=== PATIENT | female | born 1950 | race Caucasian/White ===

== ENCOUNTER 2016-06-20 17:27 | Emergency (ER) ==
[2016-06-20 17:32] VITALS: BP 134/91; TEMP 98.4; BMI 28.1
[2016-06-20 17:51] LABS: BASOPHILS % (AUTO) 0.3 % (0.0-3.0); EOSINOPHILS # (AUTO) 0.1 K/ul (0.0-0.7); EOSINOPHILS % (AUTO) 0.8 % (0.0-7.0); HEMATOCRIT 38.5 % (37.0-47.0); HEMOGLOBIN 13.6 g/dl (12.0-16.0); IMMATURE GRANULOCYTE % (AUTO) 0.8 % (0.0-5.0); LYMPHOCYTES # (AUTO) 1.3 K/uL (0.60-3.4); LYMPHOCYTES % (AUTO) 12.1 (10.0-50.0); MEAN CORPUSCULAR HGB CONC 35.3 (31.8-35.4); MEAN CORPUSCULAR VOLUME 93.4 fl (81.0-99.0); MONOCYTES # (AUTO) 0.6 K/uL (0.4-2.0); MONOCYTES % (AUTO) 5.6 (0-10); NEUTROPHILS # (AUTO) 8.3 K/ul (2.0-6.9); NEUTROPHILS % (AUTO) 80.4; PLATELET COUNT 234 10^3/uL (140-440); RED BLOOD COUNT 4.12 10^6/ul (4.20-5.40); WHITE BLOOD COUNT 10.34 K/ul (4.6-10.2)
--- NOTE | 2016-06-20 17:59 | ED.PDOC ---
General Stated Complaint: OVERDOSE LAMOTRIGINE Time Seen by Physician: 17:30 (TOOK ABOUT ABOUT 3 HOURS P.T.A ) Mode of Arrival: Ambulance Information Source: Patient, EMT Exam Limitations: No limitations (ABOUT 5:45 PT AOX3 ) Nursing and Triage Documentation Reviewed and Agree: Yes <FLEIPEKAYLEE - Last Filed: 06/20/16 17:57> <ALEJANDRA MANCILLA - Last Filed: 06/21/16 00:13> ED Provider: Dr. ALEJANDRA DHALIWALHILARIO Chief Complaint: Suicide Attempt Overdose Primary Care Provider: SHANE BAGLEY Psychological Complaint Exam - Overdose/Toxic Exposure Complaint/Exam Patient Complains Of: Overdose Exposure Occurred: 3 HOURS AGO Ingestion: Medication Character: Reports: Oral Aggravating: Reports: None Treatment Prior To Arrival: None Associated Signs And Symptoms: Reports: Intentional ingestion Related History: Reports: Similar episode (LESS THAN ONE YEAR, PT IS NOT STATING WHY SHE HAS TAKEN MEDS) Completed Suicide Risk Factors: Age > 60, , Past suicide attempt Gag Reflex Present: Yes Inability To Swallow Present: No Drooling Present: No Glascow Coma Scale (see protocol): 15 Miosis Present: No Mydriasis Present: No Nystagmus Present: No Speech: Present: Normal findings Aphasia: Present: None Gait: Present: Unable Patient Uncooperative For Exam: Yes Mood: Present: Depressed Appearance: Present: Clean Thought Process: Present: Logical Insight: Present: Limited Memory: Intact Judgement: Impaired Danger To Others: No Patient Medically Stable For: Psych evaluation Differential Diagnoses: Depression, Intentional Drug OD Quality Indicator For Non-Traumatic Chest Pain/Syncope: EKG Performed <MARIANMIKEKAYLEE - Last Filed: 06/20/16 17:57> Review of Systems - Review Of Systems Constitutional: Reports: Malaise Eyes: Reports: No symptoms Ears, Nose, Mouth, Throat: Reports: No symptoms Respiratory: Reports: No symptoms Cardiac: Reports: No symptoms GI: Reports: No symptoms : Reports: No symptoms Musculoskeletal: Reports: No symptoms Skin: Reports: No symptoms Neurological: Reports: No symptoms Endocrine: Reports: No symptoms Hematologic/Lymphatic: Reports: No symptoms All Other Systems: Reviewed and Negative <FELIPEKAYLEE - Last Filed: 06/20/16 17:57> Past Medical History - Past Medical History Endocrine: Reports: Hypothyroid (synthroid) Cardiovascular: Reports: Hypertension (diovan) Respiratory: Reports: None Hematological: Reports: None Gastrointestinal: Reports: None Genitourinary: Reports: None Neuro/Psych: Reports: Anxiety, Depression Musculoskeletal: Reports: None Cancer: Reports: None Last Menstrual Period: n/a Other Pertinent Past Medical History: htn thyroid depr anx - Surgical History General Surgical History: Reports: Unknown - Family History Family History: Reports: Unknown - Social History Smoking Status: Current every day smoker, Heavy tobacco smoker Hx Substance Use: No (PATIENTADMITSMARIJUANAUSE"HELPS ME SLEEP" AND XANAX(NOTE IS ON CLONAZEPAM)) Alcohol Screening: None <KAYLEE WANG - Last Filed: 06/20/16 17:57> Physical Exam - Physical Exam Appearance: Ill-appearing Ill-appearing: Mild Pain Distress: Mild Eyes: MK, EOMI, Conjunctiva clear ENT: Ears normal, Nose normal, Oropharynx normal Respiratory: Airway patent, Breath sounds clear, Breath sounds equal, Respirations nonlabored Cardiovascular: RRR, Pulses normal, No rub, No murmur GI/: Soft, Nontender, No masses, Bowel sounds normal, No Organomegaly Musculoskeletal: Normal strength, ROM intact, No edema, No calf tenderness Skin: Warm, Dry, Normal color Neurological: Sensation intact, Motor intact, Reflexes intact, Cranial nerves intact, Alert, Oriented Psychiatric: Affect appropriate, Mood appropriate <KAYLEE WANG Last Filed: 06/20/16 17:57> Interpretation - Apron Trimmer Rate: Normal Rhythm: Sinus Ectopy: None - EKG Interpretation Rate: Normal Rhythm: Sinus Ectopy: None [place]: [place] ST Segment: Normal <KAYLEE WANG Last Filed: 06/20/16 17:57> Re-Evaluation - Re-Evaluation Time of Re-Evaluation: 23:23 Status: Improved (awake and alert--remorseful--says she is not suicidal now--) Vital Signs Stable: Yes Pain Level: 0 Appearance: NAD Lungs: Clear Skin: Warm and Dry Neuro: Alert and Oriented X3 CV: RRR <ALEJANDRA MANCILLA - Last Filed: 06/21/16 00:13> Critical Care Note - Critical Care Note Total Time (mins): 0 <KAYLEE WANG Last Filed: 06/20/16 17:57> Course - Course Hematology/Chemistry: 06/20/16 17:45 <KAYLEE WANG - Last Filed: 06/20/16 17:57> - Course Hematology/Chemistry: 06/20/16 17:45 06/20/16 17:45 <ALEJANDRA MANCILLA - Last Filed: 06/21/16 00:13> - Course Orders, Labs, Meds: Lab Review 06/20/16 06/20/16 17:45 18:10 WBC 10.34 H RBC 4.12 L Hgb 13.6 Hct 38.5 MCV 93.4 MCH 33.0 H MCHC 35.3 RDW Coeff of Dorinda 12.2 Plt Count 234 Immature Gran % (Auto) 0.8 Neut % (Auto) 80.4 Lymph % (Auto) 12.1 [place] % (Auto) 5.6 Eos % (Auto) 0.8 Baso % (Auto) 0.3 Immature Gran # (Auto) 0.1 Neut # 8.3 H Lymph # 1.3 [place] # 0.6 Eos # 0.1 Baso # 0.0 Sodium 139 Potassium 3.4 L Chloride 104 Carbon Dioxide 27 Anion Gap 11.4 BUN 16 Creatinine 0.98 Estimated GFR (MDRD) 57.00 BUN/Creatinine Ratio 16.32 Glucose 114 Calcium 9.3 Magnesium 1.9 Total Bilirubin 0.30 AST 17 ALT 18 Alkaline Phosphatase 85 Total Creatine Kinase 81 Total Protein 7.0 Albumin 3.6 Globulin 3.4 Albumin/Globulin Ratio 1.06 TSH 0.705 Urine Color Yellow Urine Clarity Clear Urine pH 5.5 Ur Specific [place] 1.020 Urine Protein Negative Urine Glucose (UA) Negative Urine Ketones Negative Urine Blood 1+ Urine Nitrite Negative Urine Bilirubin Negative Urine Urobilinogen 0.2 Ur Leukocyte Esterase Negative Urine Microscopic RBC 2-5 Ur Squamous Epith Cells Not present Salicylate Level mg/dL < 5.0 Urine Opiates Screen Negative Ur Oxycodone Screen Negative Urine Methadone Screen Negative Ur Propoxyphene Screen Negative Acetaminophen < 3 L Ur Barbiturates Screen Negative U Tricyclic Antidepress Negative Ur Phencyclidine Scrn Negative Ur Amphetamine Screen Negative U Methamphetamines Scrn Positive U Benzodiazepines Scrn Positive Urine Cocaine Screen Negative U Cannabinoids Screen Negative Plasma/Serum Alcohol < 10.0 Orders Category Date Time Status EKG-(ED ONLY) Stat CARDIO 06/20/16 17:39 Completed EKG-(ED ONLY) Timed CARDIO 06/20/16 21:00 Completed ED PROCESS PUMPER APPLIED ONCE EMERGENCY 06/20/16 17:39 Active Mental Health Consult [ED MENTAL HEALTH CONSULT] .ONCE EMERGENCY 06/20/16 19: 50 Active Poison Control [ED POISON CONTROL CONTACTED] .ONCE EMERGENCY 06/20/16 18:32 Active ACETAMINOPHEN Stat LAB 06/20/16 17:45 Completed BLOOD ALCOHOL Stat LAB 06/20/16 17:45 Completed CALCIUM Stat LAB 06/20/16 17:45 Completed CBC W/ AUTO DIFF Stat LAB 06/20/16 17:45 Completed COMPREHENSIVE METABOLIC PANEL Stat LAB 06/20/16 17:45 Completed CPK [CREATINE KINASE] Stat LAB 06/20/16 17:45 Completed DRUG SCREEN, URINE, RAPID Stat LAB 06/20/16 18:10 Completed MAGNESIUM Stat LAB 06/20/16 17:45 Completed SALICYLATE Stat LAB 06/20/16 17:45 Completed TSH [THYROID STIMULATING HORMONE] Stat LAB 06/20/16 17:45 Completed URINALYSIS C & S IF INDICATED Stat LAB 06/20/16 18:10 Completed Potassium Chloride [K-Dur] MEDS 06/20/16 18:43 Discontinued 40 meq PO ONCE STA Medications Discontinued Medications Generic Name Dose Route Start Last Admin Trade Name Freq PRN Reason Stop Dose Admin Potassium Chloride 40 meq 06/20/16 18:43 06/20/16 19:10 K-Dur PO 06/20/16 18:44 40 meq ONCE STA Administration mental health counselor here to see the patient --he does not feel she is suicidal at this time--i agree--spoke to her sister and she will be staying with her (ALEJANDRA MANCILLA) Vital Signs: Temp Pulse Resp BP Pulse Ox 06/20/16 17:27 98.4 F 73 16 134/91 H 93 L cleared by poison control but discharge as well as mental health) (ALEJANDRA MANCILLA) Departure - Departure Disposition Discussed With: Patient <FELIPEKAYLEE - Last Filed: 06/20/16 17:57> - Departure Time of Disposition: 23:25 Pt referred to PMD for follow-up: Yes Disposition Discussed With: Patient, Family <ALEJANDRA MANCILLA - Last Filed: 06/21/16 00:13> - Departure Disposition: HOME SELF-CARE Discharge Problem: Depression Discharge Problem: (Ruled Out): Suicide by self-administered drug Instructions: Depression (ED) Condition: Good Additional Instructions: f/u with mental health per their discussion Allergies/Adverse Reactions: Allergies morphine Adverse Reaction (Verified 06/20/16 17:37) Home Medications: Ambulatory Orders Levothyroxine Sodium [Synthroid] 100 mcg PO QDAC 04/13/13 Clonazepam 1 mg PO TID 09/13/15 Doxepin HCl [Sinequan] 25 mg PO BEDTIME 09/13/15 Levothyroxine Sodium [Synthroid] 50 mcg PO QDAC #30 tablet 09/13/15 Lorazepam 1 mg PO TID 09/13/15 Losartan/Hydrochlorothiazide [Losartan-Hctz 100-25 mg Tab] 1 each PO DAILY 09/12 Sertraline HCl 100 mg PO DAILY 09/13/15
[2016-06-20 18:13] LABS: ACETAMINOPHEN < 3 ug/ml (10-30); ALANINE AMINOTRANSFERASE 18 U/L (12-78); ALBUMIN 3.6 g/dL (3.4-5.0); ALBUMIN/GLOBULIN RATIO 1.06; ALKALINE PHOSPHATASE 85 U/L (53-141); ANION GAP 11.4; ASPARTATE AMINO TRANSFERASE 17 U/L (15-37); BLOOD UREA NITROGEN 16 mg/dL (7-18); BUN/CREATININE RATIO 16.32; CALCIUM 9.3 mg/dL (8.2-10.2); CARBON DIOXIDE 27 mmol/L (23-31); CHLORIDE 104 mmol/L (98-107); CREATININE 0.98 mg/dL (0.60-1.30); GLUCOSE 114 mg/dL (82-115); POTASSIUM 3.4 mmol/L (3.5-5.10); SALICYLATE < 5.0 mg/dL (2.8-20.0); SODIUM 139 mmol/L (136-145)
[2016-06-20 18:16] LABS: BILIRUBIN,URINE Negative (NEGATIVE); KETONES,URINE Negative (NEGATIVE); LEUKOCYTE ESTERASE ,URINE Negative (NEGATIVE); NITRITE,URINE Negative (NEGATIVE); PH,URINE 5.5 (5-9); PROTEIN,URINE Negative (NEGATIVE); URINE, BLOOD 1+ (NEGATIVE)
[2016-06-20 18:19] LABS: ADD URINE MICROSCOPIC YES
[2016-06-20 18:21] LABS: CALCIUM 9.3 mg/dL (8.2-10.2); MAGNESIUM 1.9 mg/dL (1.7-2.2)
[2016-06-20 18:24] LABS: COCAIN SCREEN,URINE NEGATIVE (NEGATIVE)
[2016-06-20] MEDS ORDERED: K-DUR PO STA (18:43)
== END 2016-06-21 00:10 | disposition home or self-care (01) ==
LOC: ED 17:27
DX: T42.6X1A Poisoning by other antiepileptic and sedative-hypnotic drugs, accidental (unintentional), initial encounter (principal); F32.9 Major depressive disorder, single episode, unspecified; I10 Essential (primary) hypertension; E03.9 Hypothyroidism, unspecified; F17.210 Nicotine dependence, cigarettes, uncomplicated; Z79.899 Other long term (current) drug therapy
CPT/HCPCS: 36415; 80053; 80306; 80307; 81001; 82310; 82550; 83735; 84443; 85025; 93005; 93010; 99283

== ENCOUNTER 2016-08-16 23:16 | Inpatient (IN) | payer OTHER ==
[2016-08-16] MEDS ORDERED: SODIUM CHLORIDE 1,000 ML IV STA (23:19)
[2016-08-16 23:33] LABS: BASOPHILS % (AUTO) 0.5 % (0.0-3.0); EOSINOPHILS # (AUTO) 0.2 K/ul (0.0-0.7); EOSINOPHILS % (AUTO) 2.5 % (0.0-7.0); HEMATOCRIT 39.8 % (37.0-47.0); HEMOGLOBIN 13.8 g/dl (12.0-16.0); IMMATURE GRANULOCYTE % (AUTO) 0.4 % (0.0-5.0); LYMPHOCYTES # (AUTO) 3.4 K/uL (0.60-3.4); LYMPHOCYTES % (AUTO) 42.9 (10.0-50.0); MEAN CORPUSCULAR HEMOGLOBIN 33.3 pg (27.0-31.0); MEAN CORPUSCULAR HGB CONC 34.7 (31.8-35.4); MEAN CORPUSCULAR VOLUME 95.9 fl (81.0-99.0); MONOCYTES # (AUTO) 0.6 K/uL (0.4-2.0); MONOCYTES % (AUTO) 7.6 (0-10); NEUTROPHILS # (AUTO) 3.6 K/ul (2.0-6.9); NEUTROPHILS % (AUTO) 46.1; PLATELET COUNT 242 10^3/uL (140-440); RED BLOOD COUNT 4.15 10^6/ul (4.20-5.40); WHITE BLOOD COUNT 7.85 K/ul (4.6-10.2)
[2016-08-16 23:52] LABS: ALBUMIN 3.7 g/dL (3.4-5.0); ALBUMIN/GLOBULIN RATIO 1.19; ANION GAP 12.6; BILIRUBIN,TOTAL 0.28 mg/dL (0.00-1.20); BUN/CREATININE RATIO 17.17; CALCIUM 9.8 mg/dL (8.2-10.2); CREATININE 0.99 mg/dL (0.60-1.30); POTASSIUM 3.6 mmol/L (3.5-5.10); TOTAL PROTEIN 6.8 g/dL (5.8-8.1)
[2016-08-16 23:58] LABS: ABG BASE EXCESS 2 (-2.0-2.0); ABG PCO2 45.7 mmHg (35-45); ABG PH 7.381 (7.35-7.45); ABG TCO2 28 (22.0-28.0)
[2016-08-17 00:12] LABS: ACETAMINOPHEN < 3 ug/ml (10-30); SALICYLATE < 5.0 mg/dL (2.8-20.0)
[2016-08-17 00:14] LABS: BILIRUBIN,URINE Negative (NEGATIVE); KETONES,URINE Negative (NEGATIVE); LEUKOCYTE ESTERASE ,URINE Negative (NEGATIVE); NITRITE,URINE Negative (NEGATIVE); PH,URINE 5.5 (5-9); PROTEIN,URINE Negative (NEGATIVE); URINE, BLOOD 1+ (NEGATIVE)
[2016-08-17 00:17] LABS: ADD URINE MICROSCOPIC YES
[2016-08-17 00:18] LABS: BACTERIA,URINE TRACE (NOT PRESENT)
[2016-08-17 00:58] LABS: COCAIN SCREEN,URINE NEGATIVE (NEGATIVE)
--- NOTE | 2016-08-17 00:59 | ED.PDOC ---
General ED Provider: Dr. ALEJANDRA DHALIWAL-ER Chief Complaint: Overdose Stated Complaint: took overdose earlier this am--unknown about number of meds Time Seen by Physician: 23:20 Mode of Arrival: Ambulance Information Source: Patient, EMT Exam Limitations: No limitations Primary Care Provider: SHANE BAGLEY Nursing and Triage Documentation Reviewed and Agree: Yes Psychological Complaint Exam - Overdose/Toxic Exposure Complaint/Exam Patient Complains Of: Overdose Ingestion Occurred: earlier this evening Witnessed: No Ingestion: Medication Character: Reports: Oral Aggravating: Reports: None Associated Signs And Symptoms: Reports: Intentional ingestion. Denies: AMS, Agitation, Seizure, Diaphoresis, Chest pain, Palpitations, Cyanosis, Short of air, Cough, Vomiting, Drooling, Unintentional overdose, Pediatric ingestion Related History: Reports: Similar episode Completed Suicide Risk Factors: Age > 60, Gag Reflex Present: Yes Inability To Swallow Present: No Drooling Present: No Glascow Coma Scale (see protocol): 15 Miosis Present: No Mydriasis Present: No Nystagmus Present: No Speech: Present: Normal findings Aphasia: Present: None Gait: Present: Normal Patient Uncooperative For Exam: No Mood: Present: Depressed, Anxious Appearance: Present: Clean Insight: Present: Poor Memory: Intact Judgement: Impaired Danger To Others: No Patient Medically Stable For: Psych evaluation, Referral, Transfer Differential Diagnoses: Anxiety, Intentional Drug OD Quality Indicator For Non-Traumatic Chest Pain/Syncope: EKG Performed Review of Systems - Review Of Systems Constitutional: Reports: No symptoms Eyes: Reports: No symptoms Ears, Nose, Mouth, Throat: Reports: No symptoms Respiratory: Reports: No symptoms Cardiac: Reports: No symptoms GI: Reports: No symptoms : Reports: No symptoms Musculoskeletal: Reports: No symptoms Skin: Reports: No symptoms Neurological: Reports: No symptoms Endocrine: Reports: No symptoms Hematologic/Lymphatic: Reports: No symptoms All Other Systems: Reviewed and Negative Past Medical History - Past Medical History Previously Healthy: Yes Endocrine: Reports: Hypothyroid (synthroid) Cardiovascular: Reports: Hypertension (diovan) Respiratory: Reports: None Hematological: Reports: None Gastrointestinal: Reports: None Genitourinary: Reports: None Neuro/Psych: Reports: Anxiety, Depression Musculoskeletal: Reports: None Cancer: Reports: None Last Menstrual Period: na Other Pertinent Past Medical History: htn thyroid depr anx - Surgical History General Surgical History: Reports: Unknown - Family History Family History: Reports: Unknown - Social History Smoking Status: Current every day smoker Hx Substance Use: Yes (marijuana) Alcohol Screening: None Lives: With family - Immunizations Tetanus Shot up to Date: No (unsure) Physical Exam - Physical Exam Appearance: Well-appearing, No pain distress, Well-nourished Eyes: MK, EOMI, Conjunctiva clear ENT: Ears normal, Nose normal, Oropharynx normal Neck: Supple Respiratory: Airway patent, Breath sounds clear, Breath sounds equal, Respirations nonlabored Cardiovascular: RRR GI/: Soft, Nontender, No masses, Bowel sounds normal, No Organomegaly Musculoskeletal: Normal strength, ROM intact, No edema, No calf tenderness Skin: Warm, Dry, Normal color Neurological: Sensation intact, Motor intact, Reflexes intact, Cranial nerves intact, Alert, Oriented Psychiatric: Affect appropriate, Mood appropriate Re-Evaluation - Re-Evaluation Time of Re-Evaluation: 01:05 Status: Improved Vital Signs Stable: Yes Pain Level: 0 Appearance: NAD Lungs: Clear Skin: Warm and Dry Neuro: Alert and Oriented X3 CV: RRR Physician Notification - Case Discussed Physician Notified: dr stephens Time of Notification: 01:05 Critical Care Note - Critical Care Note Total Time (mins): 0 Course - Course Hematology/Chemistry: 08/16/16 23:30 08/16/16 23:30 Orders, Labs, Meds: Lab Review 08/16/16 08/16/16 08/16/16 23:18 23:30 23:55 WBC 7.85 RBC 4.15 L Hgb 13.8 Hct 39.8 MCV 95.9 MCH 33.3 H MCHC 34.7 RDW Coeff of Dorinda 13.8 Plt Count 242 Immature Gran % (Auto) 0.4 Neut % (Auto) 46.1 Lymph % (Auto) 42.9 [place] % (Auto) 7.6 Eos % (Auto) 2.5 Baso % (Auto) 0.5 Immature Gran # (Auto) 0.0 Neut # 3.6 Lymph # 3.4 [place] # 0.6 Eos # 0.2 Baso # 0.0 Puncture Site Rb O2 Saturation 93.0 L ABG pH 7.381 ABG pCO2 45.7 H ABG pO2 67.0 L ABG HCO3 27.0 H ABG Total CO2 28 ABG Base Excess 2 Orion Test + FiO2 % 21.0 Sodium 141 Potassium 3.6 Chloride 105 Carbon Dioxide 27 Anion Gap 12.6 BUN 17 Creatinine 0.99 Estimated GFR (MDRD) 56.00 BUN/Creatinine Ratio 17.17 Glucose 95 Calcium 9.8 Total Bilirubin 0.28 AST 14 L ALT 14 Alkaline Phosphatase 79 Total Protein 6.8 Albumin 3.7 Globulin 3.1 Albumin/Globulin Ratio 1.19 TSH 2.006 Urine Color Yellow Urine Clarity Clear Urine pH 5.5 Ur Specific [place] 1.010 Urine Protein Negative Urine Glucose (UA) Negative Urine Ketones Negative Urine Blood 1+ Urine Nitrite Negative Urine Bilirubin Negative Urine Urobilinogen 0.2 Ur Leukocyte Esterase Negative Urine Microscopic RBC 0-2 Ur Squamous Epith Cells 2-5 Urine Bacteria Trace Salicylate Level mg/dL < 5.0 Urine Opiates Screen Ur Oxycodone Screen Urine Methadone Screen Ur Propoxyphene Screen Acetaminophen < 3 L Ur Barbiturates Screen U Tricyclic Antidepress Ur Phencyclidine Scrn Ur Amphetamine Screen U Methamphetamines Scrn U Benzodiazepines Scrn Urine Cocaine Screen U Cannabinoids Screen Plasma/Serum Alcohol < 10.0 08/17/16 00:00 WBC RBC Hgb Hct MCV MCH MCHC RDW Coeff of Dorinda Plt Count Immature Gran % (Auto) Neut % (Auto) Lymph % (Auto) [place] % (Auto) Eos % (Auto) Baso % (Auto) Immature Gran # (Auto) Neut # Lymph # [place] # Eos # Baso # Puncture Site O2 Saturation ABG pH ABG pCO2 ABG pO2 ABG HCO3 ABG Total CO2 ABG Base Excess Orion Test FiO2 % Sodium Potassium Chloride Carbon Dioxide Anion Gap BUN Creatinine Estimated GFR (MDRD) BUN/Creatinine Ratio Glucose Calcium Total Bilirubin AST ALT Alkaline Phosphatase Total Protein Albumin Globulin Albumin/Globulin Ratio TSH Urine Color Urine Clarity Urine pH Ur Specific [place] Urine Protein Urine Glucose (UA) Urine Ketones Urine Blood Urine Nitrite Urine Bilirubin Urine Urobilinogen Ur Leukocyte Esterase Urine Microscopic RBC Ur Squamous Epith Cells Urine Bacteria Salicylate Level mg/dL Urine Opiates Screen Negative Ur Oxycodone Screen Negative Urine Methadone Screen Negative Ur Propoxyphene Screen Negative Acetaminophen Ur Barbiturates Screen Negative U Tricyclic Antidepress Negative Ur Phencyclidine Scrn Negative Ur Amphetamine Screen Negative U Methamphetamines Scrn Negative U Benzodiazepines Scrn Positive Urine Cocaine Screen Negative U Cannabinoids Screen Negative Plasma/Serum Alcohol Orders Category Date Time Status ABG DRAW REQUEST Stat CARDIO 08/16/16 23:18 Completed EKG-(ED ONLY) Stat CARDIO 08/16/16 23:18 Completed Supervisor Electron Tube Processing [ED CERTIFIED HYPERBARIC TECHNOLOGIST APPLIED] .ONCE EMERGENCY 08/16/16 23:30 Active ED IV/MEDIPORT/POWERPORT .ONCE EMERGENCY 08/16/16 23:19 Active Poison Control [ED POISON CONTROL CONTACTED] .ONCE EMERGENCY 08/16/16 23:28 Active ABG Stat LAB 08/16/16 23:18 Completed ACETAMINOPHEN Stat LAB 08/16/16 23:30 Completed BLOOD ALCOHOL Stat LAB 08/16/16 23:30 Completed CBC W/ AUTO DIFF Stat LAB 08/16/16 23:30 Completed COMPREHENSIVE METABOLIC PANEL Stat LAB 08/16/16 23:30 Completed SALICYLATE Stat LAB 08/16/16 23:30 Completed TSH [THYROID STIMULATING HORMONE] Stat LAB 08/16/16 23:30 Completed URINALYSIS C & S IF INDICATED Stat LAB 08/16/16 23:55 Completed URINE DRUG SCREEN (RAPID FOR ED) [DRUG SCREEN, URINE, LAB 08/17/16 00:00 Completed RAPID] Stat 0.9 % Sodium Chloride [Saline Flush] MEDS 08/16/16 23:19 Ordered 1 syr IVF PRN PRN Sodium Chloride 0.9% [Sodium Chloride] 1,000 ml MEDS 08/16/16 23:19 Active IV 100 mls/hr Medications Generic Name Dose Route Start Last Admin Trade Name Freq PRN Reason Stop Dose Admin Sodium Chloride 1,000 mls @ 100 mls/hr 08/16/16 23:19 08/17/16 00:09 Sodium Chloride IV 08/17/16 09:18 100 mls/hr .Q10H STA Administration Sodium Chloride 1 syr 08/16/16 23:19 Saline Flush IVF PRN PRN To flush IV Vital Signs: Temp Pulse Resp BP Pulse Ox 08/16/16 23:17 99.7 F H 84 20 159/96 H 94 L Departure - Departure Time of Disposition: 01:05 Disposition: ADMITTED INPATIENT Discharge Problem: Drug overdose Instructions: Adult Overdose (ED) Condition: Good Pt referred to PMD for follow-up: Yes Allergies/Adverse Reactions: Allergies morphine Adverse Reaction (Verified 08/17/16 00:13) Home Medications: Ambulatory Orders Levothyroxine Sodium [Synthroid] 100 mcg PO QDAC 04/13/13 Clonazepam 1 mg PO TID 09/13/15 Doxepin HCl [Sinequan] 25 mg PO BEDTIME 09/13/15 Levothyroxine Sodium [Synthroid] 50 mcg PO QDAC #30 tablet 09/13/15 Lorazepam 1 mg PO TID 09/13/15 Losartan/Hydrochlorothiazide [Losartan-Hctz 100-25 mg Tab] 1 each PO DAILY 09/12 Sertraline HCl 100 mg PO DAILY 09/13/15 Disposition Discussed With: Patient
[2016-08-17 01:52] VITALS: BMI 27.3
[2016-08-17 04:20] LABS: BASOPHILS % (AUTO) 0.6 % (0.0-3.0); EOSINOPHILS # (AUTO) 0.2 K/ul (0.0-0.7); EOSINOPHILS % (AUTO) 2.6 % (0.0-7.0); HEMATOCRIT 38.6 % (37.0-47.0); HEMOGLOBIN 13.1 g/dl (12.0-16.0); IMMATURE GRANULOCYTE % (AUTO) 0.4 % (0.0-5.0); LYMPHOCYTES # (AUTO) 2.5 K/uL (0.60-3.4); MEAN CORPUSCULAR HEMOGLOBIN 32.5 pg (27.0-31.0); MEAN CORPUSCULAR HGB CONC 33.9 (31.8-35.4); MEAN CORPUSCULAR VOLUME 95.8 fl (81.0-99.0); MONOCYTES # (AUTO) 0.6 K/uL (0.4-2.0); MONOCYTES % (AUTO) 8.4 (0-10); NEUTROPHILS # (AUTO) 3.8 K/ul (2.0-6.9); PLATELET COUNT 240 10^3/uL (140-440); RED BLOOD COUNT 4.03 10^6/ul (4.20-5.40); WHITE BLOOD COUNT 7.23 K/ul (4.6-10.2)
[2016-08-17 04:43] LABS: ALBUMIN 3.5 g/dL (3.4-5.0); ALBUMIN/GLOBULIN RATIO 1.17; ANION GAP 11.5; BILIRUBIN,TOTAL 0.28 mg/dL (0.00-1.20); BUN/CREATININE RATIO 14.15; CALCIUM 9.2 mg/dL (8.2-10.2); CREATININE 1.13 mg/dL (0.60-1.30); POTASSIUM 3.5 mmol/L (3.5-5.10); TOTAL PROTEIN 6.5 g/dL (5.8-8.1)
[2016-08-17] MEDS ORDERED: SYNTHROID ONE (05:24)
[2016-08-17] MEDS: SYNTHROID PO SCH (05:41)
[2016-08-17] MEDS ORDERED: SYNTHROID PO SCH (06:30)
[2016-08-17] MEDS: SODIUM CHLORIDE 1,000 ML IV SCH (10:23)
--- NOTE | 2016-08-17 11:11 | HP ---
DATE OF SERVICE: 08/17/16 CHIEF COMPLAINT: Overdose HISTORY OF PRESENT ILLNESS: This 66 year old WHITE/ F was hospitalized 08/17/16 with overdose of Ativan. The patient states she took some pills as she states she was upset; stated in ER she was under stress. Laura Resendez is her PMD. She is tearful stating that she wants to go home and is worried about her family. The patient was stressed out at home and took extra Ativan to hurt herself and family brought her to ER. In the ER she was lethargic. She was responding to verbal stimuli and going back to sleep. REVIEW OF SYSTEMS: CONSTITUTIONAL: No fever, no chills. HEENT: Normal. ENDOCRINE: No weight gain; no weight loss. CVS: No chest pain. No PND, no orthopnea. No shortness of breath. No PND, no orthopnea. RESPIRATORY: No cough, no congestion. No hemoptysis. GI: No nausea, no vomiting. No abdominal pain. No melena. : No hematuria. No polyuria. MUSCULOSKELETAL: No joint swelling. PSYCHIATRIC: Tearful, depressed. Suicidal thoughts. No homicidal thoughts. SKIN: Intact, no open lesions. PAST MEDICAL HISTORY: 1. Depression 2. Hypertension 3. Hypothyroid PAST SURGICAL HISTORY: 1. Hysterectomy - 35 years ago 2. Right knee replacement PERSONAL/FAMILY HISTORY: Single. Current every day smoker. Alcohol use. History of marijuana use. Family history of throat cancer. MEDICATIONS: 1. Levothyroxine (Synthroid) 100 mcg p.o. q.d a.c. 2. Sertraline 100 mg p.o. daily 3. Lorazepam 1 mg p.o. t.i.d. 4. Losartan/Hydrochlorothiazide one each p.o. daily ALLERGIES: MORPHINE PHYSICAL EXAMINATION: VITAL SIGNS: Temperature 97.1 F, Pulse 62, Respiratory Rate 16, BP 112/68, Pulse Ox 97% HEENT: Atraumatic, normocephalic. No scleral icterus. Pallor positive. Mucosa dry. NECK: Supple. No JVD, no bruit. No lymphadenopathy. No thyromegaly. HEART: S1, S2 normal. No murmur. No cyanosis or clubbing. No ascites. LUNGS: Clear to auscultation. No rales or rhonchi. ABDOMEN: Soft, nontender. Bowel sounds are active. No CVA tenderness. No rigidity or guarding. EXTREMITIES: No cyanosis, clubbing or pedal edema. MUSCULOSKELETAL: Normal joints, no swelling. NEUROLOGIC: The patient is awake and alert, tearful. SKIN: Intact; no open lesions. LYMPHATIC: No lymph nodes palpable. LAB REVIEW (0419 HRS): 08/17/16 04:19: WBC 7.23, RBC 4.03 L, Hgb 13.1, Hct 38.6, MCV 95.8, MCH 32.5 H, MCHC 33.9, RDW Coeff of Dorinda 13.7, Plt Count 240, Immature Gran % (Auto) 0.4, Neut % (Auto) 53.0, Lymph % (Auto) 35.0, [place] % (Auto) 8.4, Eos % (Auto) 2.6, Baso % (Auto) 0.6, Immature Gran # (Auto) 0.0, Neut # 3.8, Lymph # 2.5, [place] # 0.6, Eos # 0.2, Baso # 0.0, Sodium 143, Potassium 3.5, Chloride 109 H, Carbon Dioxide 26, Anion Gap 11.5, BUN 16, Creatinine 1.13, Estimated GFR (MDRD) 48.00 , BUN/Creatinine Ratio 14.15, Glucose 91, Calcium 9.2, Total Bilirubin 0.28, AST 13 L, ALT 13, Alkaline Phosphatase 83, Total Protein 6.5, Albumin 3.5, Globulin 3.0, Albumin/Globulin Ratio 1.17 ASSESSMENT: 1. MEDICATION OVERDOSE, INTENTIONAL 2. SUICIDAL IDEATION QUESTIONABLE 3. ANXIETY/DEPRESSION PLAN: 1. Admit to SCU 2. IV fluids 3. Mental Health consultation 4. CBC, CMP daily 5. One on one precaution 6. Telemetry protocol 7. NPO for now until the patient is awake 8. Stop Ativan SCRIBED BY: SHARONDA ROSE, Corporate Staff Accountant scribed while in presence of service performed by Dr. NIURKA SCHOFIELD on 08/17/16 ([id number]) MARY
[2016-08-18] MEDS: SODIUM CHLORIDE 1,000 ML IV SCH (02:58)
[2016-08-18 04:46] LABS: BASOPHILS # (AUTO) 0.1 K/uL (0-0.2); BASOPHILS % (AUTO) 0.8 % (0.0-3.0); EOSINOPHILS # (AUTO) 0.2 K/ul (0.0-0.7); EOSINOPHILS % (AUTO) 3.4 % (0.0-7.0); HEMATOCRIT 35.8 % (37.0-47.0); HEMOGLOBIN 12.4 g/dl (12.0-16.0); IMMATURE GRANULOCYTE % (AUTO) 0.3 % (0.0-5.0); LYMPHOCYTES # (AUTO) 2.6 K/uL (0.60-3.4); LYMPHOCYTES % (AUTO) 41.1 (10.0-50.0); MEAN CORPUSCULAR HEMOGLOBIN 33.5 pg (27.0-31.0); MEAN CORPUSCULAR HGB CONC 34.6 (31.8-35.4); MEAN CORPUSCULAR VOLUME 96.8 fl (81.0-99.0); MONOCYTES # (AUTO) 0.5 K/uL (0.4-2.0); MONOCYTES % (AUTO) 8.4 (0-10); NEUTROPHILS # (AUTO) 2.9 K/ul (2.0-6.9); PLATELET COUNT 210 10^3/uL (140-440); WHITE BLOOD COUNT 6.21 K/ul (4.6-10.2)
[2016-08-18 05:10] LABS: ALBUMIN 3.3 g/dL (3.4-5.0); ALBUMIN/GLOBULIN RATIO 1.1; ANION GAP 7.9; BILIRUBIN,TOTAL 0.26 mg/dL (0.00-1.20); BUN/CREATININE RATIO 18.08; CALCIUM 9.2 mg/dL (8.2-10.2); CREATININE 0.94 mg/dL (0.60-1.30); POTASSIUM 3.9 mmol/L (3.5-5.10); TOTAL PROTEIN 6.3 g/dL (5.8-8.1)
[2016-08-18] MEDS: SYNTHROID PO SCH (05:59)
[2016-08-18] MEDS ORDERED: TYLENOL PO STA (10:09)
--- NOTE | 2016-08-18 11:03 | CT ---
EXAM: CT of the head without contrast History: Headache and overdose. Comparison: Head CT 05/07/2011 Technique: Multiplanar CT images through the head were obtained without the administration of IV co ntrast Findings: Mild to moderate mucosal thickening of the bilateral maxillary sinuses, sphenoid sinuses. Mild mucosal thickening of the ethmoid air cells. Mastoid air cells are generally clear. No acut e calvarial abnormalities. Intracranially the ventricular and cisternal spaces are normal in size, shape and configuration for a patient of this age. No dominant mass or midline shift. No hydrocephalous. No acute intracrania l hemorrhage or abnormal extraaxial fluid collections. Impression: 1. No acute intracranial process. 2. Sinus disease.
--- NOTE | 2016-08-18 11:26 | PCM.PROG ---
Attending Provider: ATTENDING PROVIDER: Dr. NIURKA SCHOFIELD - HOSPITALIST DATE OF SERVICE: 08/18/16 SUBJECTIVE: This 66 year old WHITE/ F was hospitalized 08/17/16 overdose. The patient is more awake and alert. Mental health came and talked with the patient. The patient is eligible for placement. As of today, the patient says she wants to go home. She still looks very sad. REVIEW OF SYSTEMS: CONSTITUTIONAL: No fever, no chills. ENDOCRINE: No weight loss or weight gain. HEENT: No sinus drainage, no sore throat. CVS: No angina symptoms. No CHF symptoms. No palpitations. No atypical chest pain for CAD. No shortness of breath. RESPIRATORY: No cough, no hemoptysis. GI: No melena. No abdominal pain. No nausea, no vomiting. : No hematuria. No polyuria. SKIN: No rash. No wounds. MUSCULOSKELETAL: No pain. AVIONIC TECHNICIAN: No blackout, no dizziness. No headache. No double vision. PSYCHIATRIC: depression no suicidal thoughts. No homicidal thoughts. PHYSICAL EXAMINATION: GENERAL: Lying in bed in no distress. VITAL SIGNS: Temperature 97.2 F, Pulse 58, Respiratory Rate 20, BP 105/65, Pulse Ox 95% HEENT: Normocephalic, atraumatic. Mucosa is dry, pallor positive. NECK: No JVP, no carotid bruit. No lymphadenopathy. CARDIAC: S1, S2, no S3. No murmur, gallop or regurgitation. LUNGS: Clear to auscultation. ABDOMEN: Soft, non-tender. Bowel sounds active. No rigidity, guarding or CVA tenderness. EXTREMITIES: No clubbing, cyanosis or edema. NEUROLOGIC: Awake, alert and oriented x3. LYMPHATIC: No palpable lymph nodes SKIN: Not dry. Intact. MUSCULOSKELETAL: No joint swelling. LAB REVIEW: 08/18/16 04:46 08/18/16 04:46 08/18/16 04:46: WBC 6.21, RBC 3.70 L, Hgb 12.4, Hct 35.8 L, MCV 96.8, MCH 33.5 H , MCHC 34.6, RDW Coeff of Dorinda 13.8, Plt Count 210, Immature Gran % (Auto) 0.3, Neut % (Auto) 46.0, Lymph % (Auto) 41.1, [place] % (Auto) 8.4, Eos % (Auto) 3.4, Baso % (Auto) 0.8, Immature Gran # (Auto) 0.0, Neut # 2.9, Lymph # 2.6, [place] # 0.5, Eos # 0.2, Baso # 0.1, Sodium 142, Potassium 3.9, Chloride 109 H, Carbon Dioxide 29, Anion Gap 7.9, BUN 17, Creatinine 0.94, Estimated GFR (MDRD) 60.00, BUN/Creatinine Ratio 18.08, Glucose 88, Calcium 9.2, Total Bilirubin 0.26, AST 12 L, ALT 13, Alkaline Phosphatase 72, Total Protein 6.3, Albumin 3.3 L, Globulin 3.0, Albumin/Globulin Ratio 1.10 ASSESSMENT: 1. Medication overdose intentional 2. Severe depression 3. Suicidal ideation possible PLAN: 1. Continue mental health evaluation for placement. 2. Will continue to talk with Mental Health. Meanwhile, the patient will remain in the hospital. At this time, the patient is sad but has no intention of hurting herself or anyone else at this time. CONDITION: Stable SCRIBED BY: SHARONDA ROSE Business Excellence Manager scribed while in presence of service performed by Dr. NIURKA SCHOFIELD, HOSPITALIST on 08/18/16 ([id number])
[2016-08-19 04:40] LABS: BASOPHILS # (AUTO) 0.1 K/uL (0-0.2); BASOPHILS % (AUTO) 0.7 % (0.0-3.0); EOSINOPHILS # (AUTO) 0.2 K/ul (0.0-0.7); HEMOGLOBIN 13.2 g/dl (12.0-16.0); IMMATURE GRANULOCYTE % (AUTO) 0.3 % (0.0-5.0); LYMPHOCYTES # (AUTO) 2.7 K/uL (0.60-3.4); LYMPHOCYTES % (AUTO) 37.8 (10.0-50.0); MEAN CORPUSCULAR HEMOGLOBIN 32.8 pg (27.0-31.0); MEAN CORPUSCULAR HGB CONC 34.7 (31.8-35.4); MEAN CORPUSCULAR VOLUME 94.3 fl (81.0-99.0); MONOCYTES # (AUTO) 0.5 K/uL (0.4-2.0); MONOCYTES % (AUTO) 7.5 (0-10); NEUTROPHILS # (AUTO) 3.6 K/ul (2.0-6.9); NEUTROPHILS % (AUTO) 50.7; PLATELET COUNT 233 10^3/uL (140-440); RED BLOOD COUNT 4.03 10^6/ul (4.20-5.40); WHITE BLOOD COUNT 7.07 K/ul (4.6-10.2)
[2016-08-19 05:06] LABS: ALBUMIN 3.6 g/dL (3.4-5.0); ALBUMIN/GLOBULIN RATIO 1.16; ANION GAP 10.8; BILIRUBIN,TOTAL 0.51 mg/dL (0.00-1.20); BUN/CREATININE RATIO 17.34; CALCIUM 9.6 mg/dL (8.2-10.2); CREATININE 0.98 mg/dL (0.60-1.30); POTASSIUM 3.8 mmol/L (3.5-5.10); TOTAL PROTEIN 6.7 g/dL (5.8-8.1)
[2016-08-19] MEDS: SYNTHROID PO SCH (05:52)
[2016-08-19] MEDS: SODIUM CHLORIDE 1,000 ML IV SCH (05:52)
[2016-08-19] MEDS ORDERED: COZAAR PO SCH (09:00)
[2016-08-19] MEDS ORDERED: ZOLOFT PO SCH (09:00)
[2016-08-19 11:07] VITALS: BP 165/96; TEMP 98.3
[2016-08-19] MEDS ORDERED: TYLENOL PO STA (13:14)
--- NOTE | 2016-08-25 13:23 | DS ---
DATE OF SERVICE: 08/19/16 FINAL DIAGNOSIS: 1. Suicidal ideation and attempt with ingestion of medications. 2. Severe Depression 3. Hypertension 4. Seizure disorder, non lately 5. Hysterectomy 6. Osteoarthritis 7. Rheumatoid arthritis 8. Hypothyroidism 9. Depression 10.Anxiety 11.Substance use, marijuana 12.Tonsillectomy DISCHARGE INSTRUCTIONS: Discharge the patient home with the family. Do not start the Lorazepam or Clonazepam until she seeing Laura Resendez. Followup with Laura Resendez on August 24. Followup with [facility] as outpatient. The patient is discharge with a friend who is going to take care of her temporarily. MEDICATIONS AT DISCHARGE: Levothyroxine Zoloft 100mg NEW PRESCRIPTIONS: Losartan 100mg daily instead of Losartan with the hydrochlorothiazide DIET INSTRUCTIONS: Regular ACTIVITY: As much as tolerated SMOKING: Current everyday smoker. DISEASE SPECIFIC EDUCATION: Medication side effect and dependency and abuse been discussed. HOSPITAL COURSE: Sujey Viveros who is a 66 year old female brought to the emergency room with the change in mental status. Apparently she has taken extra tablets of the Lorazepam and Clonazepam. The patient was lethargic and not responding. Toxicology was positive for the benzodiazepines. ABG showed the pH 7.381, pCO2 45.1, pO2 67. The patient was admitted to [facility] one and one precaution was maintained. Mental Health consultation was obtained. With the given IV fluids that patient was more awake and alert. They came and talked to the patient and the patient was not having any active suicidal ideations or thought of threatening. They decided that the patient can be going home which was discussed with the patient. Eventually the patient was more awake and alert. The patient clearly indicated that she doesn't have any thoughts of hurting herself or hurting anyone. She says that she wants to go home and that she will be fine at home. The patient's friend came and brought the patient home and patient's friend will be monitoring her for a couple of days until she gets settled down. At the time of discharge the patient is neurologically stable, awake and alert and not threatening to any harm to herself or anyone. TIME SPENT: More than 55 minutes. [facility]
== END 2016-08-19 14:55 | disposition home or self-care (01) | DRG 918 ==
LOC: ED 23:16 → SCU 08-17 01:11
PROVIDERS: ADMIT Emergency Medicine; ATTEND Emergency Medicine
DX: T65.92XA Toxic effect of unspecified substance, intentional self-harm, initial encounter (principal); T14.91 Suicide attempt; T42.4X2A Poisoning by benzodiazepines, intentional self-harm, initial encounter; F32.9 Major depressive disorder, single episode, unspecified; G40.909 Epilepsy, unspecified, not intractable, without status epilepticus; F41.8 Other specified anxiety disorders; F12.90 Cannabis use, unspecified, uncomplicated; I10 Essential (primary) hypertension; E03.9 Hypothyroidism, unspecified; F17.200 Nicotine dependence, unspecified, uncomplicated; Z79.899 Other long term (current) drug therapy
CPT/HCPCS: 36415; 80053; 80306; 80307; 81001; 82803; 84443; 85025; 87081; 93005; 93010; 96360; 99285

== ENCOUNTER 2016-09-06 16:53 | Emergency (ER) ==
[2016-09-06 17:00] VITALS: BP 164/88; TEMP 97.5; BMI 27.6
--- NOTE | 2016-09-06 17:37 | ED.PDOC ---
General ED Provider: Dr. KAYLEE WANG Chief Complaint: Dizziness Stated Complaint: OVERDOSE LAMOTORIGINE Time Seen by Physician: 17:00 (SHE STATED SHE TOOK THEM TO FEEL BETTER ) Mode of Arrival: Walk-In Information Source: Patient, Family Exam Limitations: No limitations Primary Care Provider: SHANE BAGLEY Nursing and Triage Documentation Reviewed and Agree: Yes Psychological Complaint Exam - Overdose/Toxic Exposure Complaint/Exam Patient Complains Of: Overdose (TOOK 5 TABLET STATED DID NOT HAVE INTENTION TO KILL HERSELF ) Ingestion Occurred: 9 AM Exposure Occurred: 9AM Witnessed: No Ingestion: Medication Character: Reports: Oral Aggravating: Reports: None Treatment Prior To Arrival: None Associated Signs And Symptoms: Denies: AMS, Agitation, Seizure, Diaphoresis, Chest pain, Palpitations, Cyanosis, Short of air, Cough, Vomiting, Drooling, Intentional ingestion, Unintentional overdose, Pediatric ingestion Completed Suicide Risk Factors: None Gag Reflex Present: Yes Inability To Swallow Present: No Drooling Present: No Glascow Coma Scale (see protocol): 15 Miosis Present: No Mydriasis Present: No Nystagmus Present: No Speech: Present: Normal findings Aphasia: Present: None Gait: Present: Normal Patient Uncooperative For Exam: Yes Appearance: Present: Clean Thought Process: Present: Logical Insight: Present: Good Memory: Intact Judgement: Normal Danger To Others: No Patient Medically Stable For: Psych evaluation Review of Systems - Review Of Systems Constitutional: Reports: No symptoms Eyes: Reports: No symptoms Ears, Nose, Mouth, Throat: Reports: No symptoms Respiratory: Reports: No symptoms Cardiac: Reports: No symptoms GI: Reports: No symptoms : Reports: No symptoms Musculoskeletal: Reports: No symptoms Skin: Reports: No symptoms Neurological: Reports: No symptoms Endocrine: Reports: No symptoms Hematologic/Lymphatic: Reports: No symptoms All Other Systems: Reviewed and Negative Past Medical History - Past Medical History Previously Healthy: Yes Endocrine: Reports: Hypothyroid (synthroid) Cardiovascular: Reports: Hypertension (diovan) Respiratory: Reports: None Hematological: Reports: None Gastrointestinal: Reports: None Genitourinary: Reports: None Neuro/Psych: Reports: Anxiety, Depression Musculoskeletal: Reports: None Cancer: Reports: None Last Menstrual Period: n/a Other Pertinent Past Medical History: htn thyroid depr anx - Surgical History General Surgical History: Reports: Unknown - Family History Family History: Reports: Unknown - Social History Smoking Status: Current every day smoker Hx Substance Use: Yes (marijuana) Alcohol Screening: None Physical Exam - Physical Exam Appearance: Well-appearing, No pain distress, Well-nourished Eyes: MK, EOMI, Conjunctiva clear ENT: Ears normal, Nose normal, Oropharynx normal Respiratory: Airway patent, Breath sounds clear, Breath sounds equal, Respirations nonlabored Cardiovascular: RRR, Pulses normal, No rub, No murmur GI/: Soft, Nontender, No masses, Bowel sounds normal, No Organomegaly Musculoskeletal: Normal strength, ROM intact, No edema, No calf tenderness Skin: Warm, Dry, Normal color Neurological: Sensation intact, Motor intact, Reflexes intact, Cranial nerves intact, Alert, Oriented Psychiatric: Affect appropriate, Mood appropriate Physician Notification - Case Discussed Physician Notified: POISON CONTROL Time of Notification: 17:20 Critical Care Note - Critical Care Note Total Time (mins): 0 Course - Course Vital Signs: Temp Pulse Resp BP Pulse Ox 09/06/16 16:54 97.5 F L 61 20 164/88 H 94 L Departure - Departure Time of Disposition: 17:39 (POISION STATED SHE IS OUTSIDE 6 HOURS OBSERVATION IF NO OTHER ISSUES MAY GO HOME) Disposition: HOME SELF-CARE Discharge Problem: Normal exam, Drug overdose Instructions: Normal Exam (ED), Adult Overdose (ED) Condition: Good Pt referred to PMD for follow-up: No Allergies/Adverse Reactions: Allergies morphine Adverse Reaction (Verified 09/06/16 17:08) Home Medications: Ambulatory Orders Sertraline HCl 100 mg PO DAILY 09/13/15 Clonazepam 2 mg PO TID 09/06/16 Lamotrigine [Lamictal] 50 mg PO BID 09/06/16 Losartan/Hydrochlorothiazide [Losartan-Hctz 100-25 mg Tab] 1 each PO DAILY 09/06
== END 2016-09-06 18:08 | disposition home or self-care (01) ==
LOC: ED 16:53
DX: T42.6X1A Poisoning by other antiepileptic and sedative-hypnotic drugs, accidental (unintentional), initial encounter (principal); R42 Dizziness and giddiness; I10 Essential (primary) hypertension; E03.9 Hypothyroidism, unspecified; F17.210 Nicotine dependence, cigarettes, uncomplicated; Z79.899 Other long term (current) drug therapy
CPT/HCPCS: 99283

== ENCOUNTER 2016-09-27 18:19 | Emergency (ER) ==
[2016-09-27 18:33] VITALS: BP 183/107; TEMP 99.2; BMI 28.3
--- NOTE | 2016-09-27 18:43 | ED.PDOC ---
General Stated Complaint: Anxiety, chronic Time Seen by Physician: 18:30 Mode of Arrival: Ambulance Information Source: Patient Exam Limitations: No limitations Nursing and Triage Documentation Reviewed and Agree: Yes <BETHANY URIAS - Last Filed: 09/27/16 18:41> <ALEJANDRA MANCILLA - Last Filed: 09/27/16 20:33> ED Provider: Dr. ALEJANDRA MANCILLA Chief Complaint: Psychiatric Complaint Primary Care Provider: SHANE BAGLEY Review of Systems - Review Of Systems Constitutional: Reports: No symptoms Respiratory: Reports: No symptoms Cardiac: Reports: No symptoms Neurological: Reports: Anxiety, Emotional problems (takes medication for anxiety ; bi-polar) All Other Systems: Reviewed and Negative <BETHANY URIAS - Last Filed: 09/27/16 18:41> Past Medical History - Past Medical History Previously Healthy: Yes Endocrine: Reports: Hypothyroid (synthroid) Cardiovascular: Reports: Hypertension (diovan) Respiratory: Reports: None Hematological: Reports: None Gastrointestinal: Reports: None Genitourinary: Reports: None Neuro/Psych: Reports: Anxiety, Depression Musculoskeletal: Reports: None Cancer: Reports: None Last Menstrual Period: n/a Other Pertinent Past Medical History: htn thyroid depr anx - Surgical History General Surgical History: Reports: Unknown - Family History Family History: Reports: Unknown - Social History Smoking Status: Current every day smoker Hx Substance Use: Yes (marijuana) Alcohol Screening: None <BETHANY URIAS - Last Filed: 09/27/16 18:41> Physical Exam - Physical Exam Appearance: Well-appearing Eyes: MK, EOMI ENT: Nose normal Neck: Supple Respiratory: Airway patent, Breath sounds clear, Breath sounds equal, Respirations nonlabored Cardiovascular: RRR, Pulses normal GI/: Soft, Nontender Musculoskeletal: Normal strength, ROM intact Skin: Warm, Dry, Normal color Neurological: Sensation intact, Motor intact, Alert, Oriented Psychiatric: Affect appropriate, Mood appropriate, Anxious <BETHANY URIAS - Last Filed: 09/27/16 18:41> Interpretation - Radiology Interpretation Radiology Interpretation By: Radiologist Radiology Results: Negative Exam Interpreted: CT Scan <ALEJANDRA MANCILLA - Last Filed: 09/27/16 20:33> Re-Evaluation - Re-Evaluation Time of Re-Evaluation: 20:32 (150/90--no dizziness or cp) Status: Improved Vital Signs Stable: Yes Pain Level: 0 Appearance: NAD Lungs: Clear Skin: Warm and Dry Neuro: Alert and Oriented X3 CV: RRR <ALEJANDRA MANCILLA - Last Filed: 09/27/16 20:33> Physician Notification - Case Discussed Endorsed To/Discussed With: Dr Wesley Time of Discussion: 18:00 <ALEJANDRA MANCILLA - Last Filed: 09/27/16 20:33> Critical Care Note - Critical Care Note Total Time (mins): 0 <ALEJANDRA MANCILLA - Last Filed: 09/27/16 20:33> Course - Course Hematology/Chemistry: 09/27/16 18:40 09/27/16 18:40 <ALEJANDRA MANCILLA - Last Filed: 09/27/16 20:33> - Course Orders, Labs, Meds: Lab Review 09/27/16 09/27/16 18:30 18:40 WBC 6.52 RBC 4.12 L Hgb 13.6 Hct 38.5 MCV 93.4 MCH 33.0 H MCHC 35.3 RDW Coeff of Dorinda 12.7 Plt Count 171 Immature Gran % (Auto) 0.3 Neut % (Auto) 52.6 Lymph % (Auto) 37.0 [place] % (Auto) 6.9 Eos % (Auto) 2.6 Baso % (Auto) 0.6 Immature Gran # (Auto) 0.0 Neut # 3.4 Lymph # 2.4 [place] # 0.5 Eos # 0.2 Baso # 0.0 Sodium 140 Potassium 3.8 Chloride 104 Carbon Dioxide 24 Anion Gap 15.8 BUN 12 Creatinine 1.03 Estimated GFR (MDRD) 54.00 BUN/Creatinine Ratio 11.65 Glucose 98 Calcium 9.1 Total Bilirubin 0.41 AST 18 ALT 20 Alkaline Phosphatase 87 Total Protein 7.2 Albumin 3.7 Globulin 3.5 Albumin/Globulin Ratio 1.06 Urine Color Yellow Urine Clarity Clear Urine pH 7.0 Ur Specific Tropic 1.015 Urine Protein Negative Urine Glucose (UA) Negative Urine Ketones Negative Urine Blood Trace-intact Urine Nitrite Negative Urine Bilirubin Negative Urine Urobilinogen 0.2 Ur Leukocyte Esterase Negative Urine Microscopic RBC 2-5 Urine Microscopic WBC 0-2 Ur Squamous Epith Cells 5-10 Urine Bacteria Trace Orders Category Date Time Status IV [ED IV/MEDIPORT/POWERPORT] .ONCE EMERGENCY 09/27/16 20:15 Active CBC W/ AUTO DIFF Stat LAB 09/27/16 18:40 Completed COMPREHENSIVE METABOLIC PANEL Stat LAB 09/27/16 18:40 Completed EHRLICHIA DNA, PCR Stat LAB 09/27/16 18:40 Received LYME, WESTERN BLOT, SERUM Stat LAB 09/27/16 18:40 Received ROMELIA MTN SPOTTED FEVER,IgM Stat LAB 09/27/16 18:40 Received URINALYSIS C & S IF INDICATED Stat LAB 09/27/16 18:30 Completed 0.9 % Sodium Chloride [Saline Flush] MEDS 09/27/16 20:15 Ordered 1 syr IVF PRN PRN Amlodipine Besylate [Norvasc] MEDS 09/27/16 18:51 Discontinued 5 mg PO ONCE STA Clonidine HCl [Catapres] MEDS 09/27/16 19:47 Discontinued 0.1 mg PO ONCE STA CT HEAD W/O CONTRAST Stat RADS 09/27/16 18:51 Completed Medications Generic Name Dose Route Start Last Admin Trade Name Freq PRN Reason Stop Dose Admin Sodium Chloride 1 syr 09/27/16 20:15 Saline Flush IVF PRN PRN To flush IV Discontinued Medications Generic Name Dose Route Start Last Admin Trade Name Freq PRN Reason Stop Dose Admin Amlodipine Besylate 5 mg 09/27/16 18:51 09/27/16 18:59 Norvasc PO 09/27/16 18:52 5 mg ONCE STA Administration Clonidine 0.1 mg 09/27/16 19:47 09/27/16 19:50 Catapres PO 09/27/16 19:48 0.1 mg ONCE STA Administration Vital Signs: Temp Pulse Resp BP Pulse Ox 09/27/16 18:22 99.2 F 62 18 183/107 H 94 L Departure <BETHANY URIAS - Last Filed: 09/27/16 18:41> - Departure Time of Disposition: 20:32 Pt referred to PMD for follow-up: Yes Disposition Discussed With: Patient <ALEJANDRA MANCILLA - Last Filed: 09/27/16 20:33> - Departure Disposition: HOME SELF-CARE Discharge Problem: Hypertension Qualifiers: Hypertension type: essential hypertension Qualifier Code: (I10) Essential ( primary) hypertension Instructions: Chronic Hypertension (ED) Condition: Good Additional Instructions: get your bp filled tomorrow and start taking it--f/u with your pcp this week Allergies/Adverse Reactions: Allergies morphine Adverse Reaction (Verified 09/27/16 18:29) Home Medications: Ambulatory Orders Sertraline HCl 100 mg PO DAILY 09/13/15 Clonazepam 2 mg PO TID 09/06/16 Lamotrigine [Lamictal] 50 mg PO BID 09/06/16 Losartan/Hydrochlorothiazide [Losartan-Hctz 100-25 mg Tab] 1 each PO DAILY 09/06
[2016-09-27] MEDS ORDERED: HYZAAR 50-12.5 MG TAB PO STA (18:47)
[2016-09-27] MEDS ORDERED: NORVASC PO STA (18:51)
[2016-09-27 18:58] LABS: BASOPHILS % (AUTO) 0.6 % (0.0-3.0); EOSINOPHILS # (AUTO) 0.2 K/ul (0.0-0.7); EOSINOPHILS % (AUTO) 2.6 % (0.0-7.0); HEMATOCRIT 38.5 % (37.0-47.0); HEMOGLOBIN 13.6 g/dl (12.0-16.0); IMMATURE GRANULOCYTE % (AUTO) 0.3 % (0.0-5.0); LYMPHOCYTES # (AUTO) 2.4 K/uL (0.60-3.4); MEAN CORPUSCULAR HGB CONC 35.3 (31.8-35.4); MEAN CORPUSCULAR VOLUME 93.4 fl (81.0-99.0); MONOCYTES # (AUTO) 0.5 K/uL (0.4-2.0); MONOCYTES % (AUTO) 6.9 (0-10); NEUTROPHILS # (AUTO) 3.4 K/ul (2.0-6.9); NEUTROPHILS % (AUTO) 52.6; RED BLOOD COUNT 4.12 10^6/ul (4.20-5.40); WHITE BLOOD COUNT 6.52 K/ul (4.6-10.2)
[2016-09-27 19:09] LABS: PLATELET COUNT 171 10^3/uL (140-440)
[2016-09-27 19:16] LABS: ALBUMIN 3.7 g/dL (3.4-5.0); ALBUMIN/GLOBULIN RATIO 1.06; ANION GAP 15.8; BILIRUBIN,TOTAL 0.41 mg/dL (0.00-1.20); BUN/CREATININE RATIO 11.65; CALCIUM 9.1 mg/dL (8.2-10.2); CREATININE 1.03 mg/dL (0.60-1.30); POTASSIUM 3.8 mmol/L (3.5-5.10); TOTAL PROTEIN 7.2 g/dL (5.8-8.1)
[2016-09-27 19:19] LABS: BILIRUBIN,URINE Negative (NEGATIVE); KETONES,URINE Negative (NEGATIVE); LEUKOCYTE ESTERASE ,URINE Negative (NEGATIVE); NITRITE,URINE Negative (NEGATIVE); PROTEIN,URINE Negative (NEGATIVE); URINE, BLOOD Trace-intact (NEGATIVE)
[2016-09-27 19:20] LABS: ADD URINE MICROSCOPIC YES
[2016-09-27 19:30] LABS: BACTERIA,URINE TRACE (NOT PRESENT)
[2016-09-27] MEDS ORDERED: CATAPRES PO STA (19:47)
--- NOTE | 2016-09-27 19:58 | CT ---
Examination: CT head without contrast 09/27/2016 Clinical information: Dizziness, hypertension. Comparison: 08/18/2016. TECHNIQUE: Noncontrast helical imaging from the foramen magnum to the vertex. 5 mm axial, 3 mm sag ittal and 3 mm coronal images are submitted for review. FINDINGS: There is no evidence of acute intracranial hemorrhage. The ventricles are normal in size and configuration. There is no mass effect, midline shift or extra-axial abnormality. There is no rmal leiva-white matter differentiation. There is hyperostosis frontalis interna. The calvarium is intact. Chronic left maxillary sinusitis with minor circumferential mucosal thickening. Impression: No CT evidence of acute intracranial abnormality. No significant change compared to .
[2016-10-01 03:53] LABS: IGG P18 AB Absent (.); IGG P23 AB Absent (.); IGG P28 AB Absent (.); IGG P30 AB Absent (.); IGG P39 AB Absent (.); IGG P41 AB Present (.); IGG P45 AB Absent (.); IGG P58 AB Absent (.); IGG P66 AB Absent (.); IGG P93 AB Absent (.); IGM P39 AB Absent (.); IGM P41 AB Present (.)
[2016-10-01 10:12] LABS: LYME IGG WB INTERP Negative (.); LYME IGM WB INTERP Negative (.)
== END 2016-09-27 21:55 | disposition home or self-care (01) ==
LOC: ED 18:19
DX: I10 Essential (primary) hypertension (principal); E03.9 Hypothyroidism, unspecified; F41.9 Anxiety disorder, unspecified; F17.210 Nicotine dependence, cigarettes, uncomplicated; Z79.899 Other long term (current) drug therapy
CPT/HCPCS: 36415; 80053; 81001; 85025; 86617; 86757; 87798; 99284

== ENCOUNTER 2021-01-19 17:30 | Observation (INO) ==
[2021-01-19] MEDS ORDERED: SODIUM CHLORIDE 1,000 ML IV STA ×3 (17:39→20:36)
--- NOTE | 2021-01-19 17:47 | ED.PDOC ---
General ED Provider: Dr. DANICA MCGUIRE Chief Complaint: Altered Mental Status Stated Complaint: Pt presents with a decreased mental status. Apparently friends of hers called EMS when she was not acting like herself. Pt herself is slow to respond and is slurring her words but will answer all questions and follow commands. She denies taking any extra medication but does take Klonopin. She denies any recent F/C/N/V/CP/AP/SOB. She denies any numbness tingling or weakness in her extremities. Nothing else has made her sxs better or worse and they are mild in nature. Family called and stated she was doing well after a nap at 2:30 pm. At 3:00 she started slurring words and was having trouble cooking and was dropping objects. Shortly after they decided to call EMS. They are unsure if she took any medications. Time Seen by Provider: 01/19/21 17:37 Mode of Arrival: Ambulance Information Source: Patient and EMT Primary Care Provider: SHANE BAGLEY Nursing and Triage Documentation Reviewed and Agree: Yes Does patient meet sepsis criteria?: No System Inflammatory Response Syndrome: Not Applicable Sepsis Protocol: For patient's 13 years and over: Temp is 96.8 and below OR 101 and greater Pulse >90 BPM Resp >20/minute Acutely Altered Mental Status Are patient's symptoms suggestive of a new infection, such as: -Pneumonia -Skin, Soft Tissue -Endocarditis -UTI -Bone, Joint Infection -Implantable Device -Acute Abdominal Infection -Wound Infection -Meningitis -Blood Stream Catheter Infection -Unknown Review of Systems Review Of Systems Constitutional: Reports No symptoms Eyes: Reports No symptoms Ears, Nose, Mouth, Throat: Reports No symptoms Respiratory: Reports Cough (occasional) Cardiac: Reports No symptoms GI: Reports No symptoms : Reports No symptoms Musculoskeletal: Reports No symptoms Skin: Reports No symptoms Neurological: Reports No symptoms Endocrine: Reports No symptoms Hematologic/Lymphatic: Reports No symptoms All Other Systems: Reviewed and Negative [facility] Social History Smoking and tobacco status: Current every day smoker (1ppd down to 1/2) Female Reproductive History Menstrual Hx Hysterectomy: Yes Hx Tubal Ligation: No Physical Exam Physical Exam Appearance: Reports No pain distress, Well-nourished and Other (Pt appears lethargic) Ill-appearing: None Pain Distress: None Eyes: Reports MK, EOMI and Conjunctiva clear ENT: Reports Oropharynx normal Neck: Supple Respiratory: Reports Airway patent, Breath sounds equal, Respirations nonlabored and Rhonchi (occasional) Cardiovascular: Reports RRR, Pulses normal, No rub and No murmur GI/: Reports Soft, Nontender, No masses, Bowel sounds normal and No Orga nomegaly Musculoskeletal: Reports Normal strength, ROM intact, No edema and No calf tenderness Skin: Reports Warm, Dry and Normal color Neurological: Reports Sensation intact, Motor intact, Reflexes intact, Cranial nerves intact, Alert, Oriented and Other (Pt is low to respons and lethargic but does answer all questions appropriately and has no focal defecits.) Psychiatric: Reports Mood appropriate Interpretation EKG Interpretation Time of EKG #1: 18:05 Rate: Normal Rhythm: Sinus Ectopy: None [place]: NL ST Segment: Normal Interpretation: Milf QT prologation Critical Care Note Critical Care Note Total Critical Care Time (mins): 0 Course Course Hematology/Chemistry: 01/19/21 17:48 01/19/21 17:48 Orders, Labs, Meds: Lab Review 01/19/21 01/19/21 01/19/21 17:36 17:45 17:48 WBC 7.85 RBC 4.24 Hgb 13.7 Hct 41.0 MCV 96.7 MCH 32.3 H MCHC 33.4 RDW Coeff of Dorinda 12.3 Plt Count 214 Immature Gran % (Auto) 0.4 Neut % (Auto) 74.6 Lymph % (Auto) 18.3 [place] % (Auto) 5.4 Eos % (Auto) 1.0 Baso % (Auto) 0.3 Neut # (Auto) 5.9 Lymph # (Auto) 1.4 [place] # (Auto) 0.4 Eos # (Auto) 0.1 Baso # (Auto) 0.0 Immature Gran # (Auto) 0.0 Puncture Site Rr Base Excess -3.2 L O2 Saturation 92.5 L ABG pH 7.39 ABG pCO2 36.0 ABG pO2 66.0 L ABG HCO3 21.8 ABG Total CO2 22.9 Orion Test Pos Hemoglobin 0.9 Oxyhemoglobin 90.1 L Carboxyhemoglobin 6.3 H Total Hemoglobin 13.6 FiO2 % 21.0 Sodium Potassium Chloride Carbon Dioxide Anion Gap BUN Creatinine Estimated GFR (MDRD) BUN/Creatinine Ratio Glucose Lactic Acid Calcium Magnesium Total Bilirubin AST ALT Alkaline Phosphatase Total Creatine Kinase Troponin I Total Protein Albumin Globulin Albumin/Globulin Ratio Amylase Lipase Salicylate Level mg/dL Urine Opiates Screen Ur Oxycodone Screen Urine Methadone Screen Ur Propoxyphene Screen Acetaminophen Ur Barbiturates Screen U Tricyclic Antidepress Ur Phencyclidine Scrn Ur Amphetamine Screen U Methamphetamines Scrn U Benzodiazepines Scrn Urine Cocaine Screen U Cannabinoids Screen Plasma/Serum Alcohol Adenovirus (PCR) Not detected B. pertussis DNA (PCR) Not detected B.parapertussis DNA PCR Not detected C. pneumoniae DNA (PCR) Not detected Coronavirus OC43 (PCR) Not detected Coronavirus HKU1 (PCR) Not detected Coronavirus 229E (PCR) Not detected Coronavirus NL63 (PCR) Not detected Human Metapneumovir PCR Not detected Influenza Type A (PCR) Not detected Influenza B (RT-PCR) Not detected M. pneumoniae (PCR) Not detected Parainfluenza 1 (PCR) Not detected Parainfluenza 2 (PCR) Not detected Parainfluenza 3 (PCR) Not detected Parainfluenza 4 (PCR) Not detected RSV (PCR) Not detected Entero/Rhino (PCR) Not detected SARS-CoV-2 (PCR) Not detected 01/19/21 01/19/21 01/19/21 17:48 17:48 17:48 WBC RBC Hgb Hct MCV MCH MCHC RDW Coeff of Dorinda Plt Count Immature Gran % (Auto) Neut % (Auto) Lymph % (Auto) [place] % (Auto) Eos % (Auto) Baso % (Auto) Neut # (Auto) Lymph # (Auto) [place] # (Auto) Eos # (Auto) Baso # (Auto) Immature Gran # (Auto) Puncture Site Base Excess O2 Saturation ABG pH ABG pCO2 ABG pO2 ABG HCO3 ABG Total CO2 Orion Test Hemoglobin Oxyhemoglobin Carboxyhemoglobin Total Hemoglobin FiO2 % Sodium 141.7 Potassium 3.84 Chloride 109.4 H Carbon Dioxide 22.6 Anion Gap 13.54 BUN 23.0 H Creatinine 0.99 Estimated GFR (MDRD) 56.00 BUN/Creatinine Ratio 23.23 Glucose 125.9 H Lactic Acid 2.46 H Calcium 9.33 Magnesium 1.47 L Total Bilirubin 0.29 AST 21.5 ALT 18.4 Alkaline Phosphatase 96.4 Total Creatine Kinase 45.4 Troponin I < 0.012 Total Protein 7.10 Albumin 4.11 Globulin 2.99 Albumin/Globulin Ratio 1.37 Amylase 55.2 Lipase 93.1 Salicylate Level mg/dL < 1.00 Urine Opiates Screen Ur Oxycodone Screen Urine Methadone Screen Ur Propoxyphene Screen Acetaminophen < 10.0 L Ur Barbiturates Screen U Tricyclic Antidepress Ur Phencyclidine Scrn Ur Amphetamine Screen U Methamphetamines Scrn U Benzodiazepines Scrn Urine Cocaine Screen U Cannabinoids Screen Plasma/Serum Alcohol < 10.0 Adenovirus (PCR) B. pertussis DNA (PCR) B.parapertussis DNA PCR C. pneumoniae DNA (PCR) Coronavirus OC43 (PCR) Coronavirus HKU1 (PCR) Coronavirus 229E (PCR) Coronavirus NL63 (PCR) Human Metapneumovir PCR Influenza Type A (PCR) Influenza B (RT-PCR) M. pneumoniae (PCR) Parainfluenza 1 (PCR) Parainfluenza 2 (PCR) Parainfluenza 3 (PCR) Parainfluenza 4 (PCR) RSV (PCR) Entero/Rhino (PCR) SARS-CoV-2 (PCR) 01/19/21 18:25 WBC RBC Hgb Hct MCV MCH MCHC RDW Coeff of Dorinda Plt Count Immature Gran % (Auto) Neut % (Auto) Lymph % (Auto) [place] % (Auto) Eos % (Auto) Baso % (Auto) Neut # (Auto) Lymph # (Auto) [place] # (Auto) Eos # (Auto) Baso # (Auto) Immature Gran # (Auto) Puncture Site Base Excess O2 Saturation ABG pH ABG pCO2 ABG pO2 ABG HCO3 ABG Total CO2 Orion Test Hemoglobin Oxyhemoglobin Carboxyhemoglobin Total Hemoglobin FiO2 % Sodium Potassium Chloride Carbon Dioxide Anion Gap BUN Creatinine Estimated GFR (MDRD) BUN/Creatinine Ratio Glucose Lactic Acid Calcium Magnesium Total Bilirubin AST ALT Alkaline Phosphatase Total Creatine Kinase Troponin I Total Protein Albumin Globulin Albumin/Globulin Ratio Amylase Lipase Salicylate Level mg/dL Urine Opiates Screen Negative Ur Oxycodone Screen Negative Urine Methadone Screen Negative Ur Propoxyphene Screen Negative Acetaminophen Ur Barbiturates Screen Negative U Tricyclic Antidepress Positive H Ur Phencyclidine Scrn Negative Ur Amphetamine Screen Negative U Methamphetamines Scrn Negative U Benzodiazepines Scrn Negative Urine Cocaine Screen Negative U Cannabinoids Screen Negative Plasma/Serum Alcohol Adenovirus (PCR) B. pertussis DNA (PCR) B.parapertussis DNA PCR C. pneumoniae DNA (PCR) Coronavirus OC43 (PCR) Coronavirus HKU1 (PCR) Coronavirus 229E (PCR) Coronavirus NL63 (PCR) Human Metapneumovir PCR Influenza Type A (PCR) Influenza B (RT-PCR) M. pneumoniae (PCR) Parainfluenza 1 (PCR) Parainfluenza 2 (PCR) Parainfluenza 3 (PCR) Parainfluenza 4 (PCR) RSV (PCR) Entero/Rhino (PCR) SARS-CoV-2 (PCR) Orders Category Date Time Status ABG DRAW REQUEST Stat CARDIO 01/19/21 17:40 Completed EKG-(ED ONLY) Stat CARDIO 01/19/21 17:39 Completed ABG COOX Stat LAB 01/19/21 17:36 Completed ACETAMINOPHEN Stat LAB 01/19/21 17:48 Completed AMYLASE Stat LAB 01/19/21 17:48 Completed BLOOD ALCOHOL Stat LAB 01/19/21 17:48 Completed BLOOD CULTURE (ED ONLY) Stat LAB 01/19/21 17:48 Received CBC W/ AUTO DIFF Stat LAB 01/19/21 17:48 Completed COMPREHENSIVE METABOLIC PANEL Stat LAB 01/19/21 17:48 Completed CREATINE KINASE Stat LAB 01/19/21 17:48 Completed DRUG SCREEN, URINE, RAPID Stat LAB 01/19/21 18:25 Completed LACTIC ACID Stat LAB 01/19/21 17:48 Completed LIPASE Stat LAB 01/19/21 17:48 Completed MAGNESIUM Stat LAB 01/19/21 17:48 Completed RESPIRATORY PANEL 2.1 (PCR) Stat LAB 01/19/21 17:45 Completed SALICYLATE Stat LAB 01/19/21 17:48 Completed TROPONIN I Stat LAB 01/19/21 17:48 Completed URINALYSIS C & S IF INDICATED Stat LAB 01/19/21 18:30 Ordered Magnesium Sulfate Bag [Magnesium Sulfate 1 gm/100 ml MEDS 01/19/21 18:37 Active D5w] 2 gm in 200 ml IV ONCE Sodium Chloride 0.9% [Sodium Chloride] 1,000 ml MEDS 01/19/21 17:39 Disc ontinued IV BOLUS Sodium Chloride 0.9% [Sodium Chloride] 1,000 ml MEDS 01/19/21 18:46 Disco ntinued IV BOLUS CHEST, 1V AP ONLY Stat RADS 01/19/21 17:[address] HEAD W/O CONTRAST Stat RADS 01/19/21 17:39 Completed Medications Generic Name Dose Route Start Last Admin Trade Name Brigitte PRN Reason Stop Dose Admin Magnesium Sulfate/Dextrose 2 gm in 200 mls @ 100 mls/hr 01/19/21 18:37 01/19/21 18:49 Magnesium Sulfate 1 Gm/100 Ml D5w IV 01/19/21 20:36 100 mls/hr ONCE STA Administration Discontinued Medications Generic Name Dose Route Start Last Admin Trade Name Brigitte PRN Reason Stop Dose Admin Sodium Chloride 1,000 mls @ 1,000 mls/hr 01/19/21 17:39 01/19/21 17:57 Sodium Chloride IV 01/19/21 18:38 1,000 mls/hr BOLUS STA Administration Sodium Chloride 1,000 mls @ 1,000 mls/hr 01/19/21 18:46 01/19/21 18:49 Sodium Chloride IV 01/19/21 19:45 1,000 mls/hr BOLUS STA Administration Vital Signs: Temp Pulse Resp BP Pulse Ox 01/19/21 19:52 73 18 122/69 92 L 01/19/21 19:20 71 21 99/60 97 01/19/21 17:31 97.3 F L 84 18 89/58 L 93 L Discharge Plan Discharge Patient Disposition: ADMITTED INPATIENT Discharge Problem: Drug overdose, Depression with suicidal ideation ED Provider: DANICA MCGUIRE Condition: Stable Physician Progress Note: 7:00 PM: I reviewed pt results. CBC and chems are unremarkable except for a magnesium of 1.5 which will be repleted. Her LA is 2.5. ETOH is 0. UDS shows tricyclics but nothing else. Trop and ck are negative. Covid is negative. CXR shows CMG without an other acute findings. CT head shows nothing acute. On reeval, she is still sedated but now admits to taking about 10 klonopin and was depressed and wanting to hurt herself. At this point she will need to be admitted to be cleared medically and then will need to be evaluated by psychiatry. I will make some calls to get her admitted. 7:15 PM: Asa and tylenol levels are negative. Family found her botttles and noticed 9 seroquel, 4 ambien and 13 clonazepam missing. 8:30 PM: There are no beds nearby so I will admit for medical clearance here and she can be evaluated by psych tomorrow when she is more alert.
[2021-01-19 17:51] LABS: ABG O2 HGB 90.1 % (95-100); ABG PH 7.39 (7.35-7.45); BEecf -3.2 (-2.0-3.0); COHb 6.3 (0.5-1.5); HCO3 21.8 (21-28); MetHb 0.9 (0-1.5); TCO2 22.9 (19-24); sO2 92.5 % (94-98); tHb 13.6 g/dl (11.7-17.4)
[2021-01-19 18:01] LABS: BASOPHILS % (AUTO) 0.3 % (0.0-3.0); EOSINOPHILS # (AUTO) 0.1 K/ul (0.0-0.7); HEMOGLOBIN 13.7 g/dl (12.0-16.0); IMMATURE GRANULOCYTE % (AUTO) 0.4 % (0.0-5.0); LYMPHOCYTES # (AUTO) 1.4 K/uL (0.60-3.4); LYMPHOCYTES % (AUTO) 18.3 (10.0-50.0); MEAN CORPUSCULAR HEMOGLOBIN 32.3 pg (27.0-31.0); MEAN CORPUSCULAR HGB CONC 33.4 (31.8-35.4); MEAN CORPUSCULAR VOLUME 96.7 fl (81.0-99.0); MONOCYTES # (AUTO) 0.4 K/uL (0.4-2.0); MONOCYTES % (AUTO) 5.4 (0-10); NEUTROPHILS # (AUTO) 5.9 K/ul (2.0-6.9); NEUTROPHILS % (AUTO) 74.6 % (42.2-75.2); PLATELET COUNT 214 10^3/uL (140-440); RDW COEFFICIENT OF VARIATION 12.3 % (11.6-14.8); RED BLOOD COUNT 4.24 10^6/ul (4.20-5.40); WHITE BLOOD COUNT 7.85 K/ul (4.6-10.2)
[2021-01-19 18:03] LABS: BORDETELLA PARAPERTUSSIS (PCR) NOT DETECTED (NOT DETECT); BORDETELLA PERTUSSIS (PCR) NOT DETECTED (NOT DETECT); CHLAMYDIA PNEUMONIAE (PCR) NOT DETECTED (NOT DETECT); CORONAVIRUS 229E (PCR) NOT DETECTED (NOT DETECT); CORONAVIRUS HKU1 (PCR) NOT DETECTED (NOT DETECT); CORONAVIRUS NL63 (PCR) NOT DETECTED (NOT DETECT); CORONAVIRUS OC43 (PCR) NOT DETECTED (NOT DETECT); HUMAN METAPNEUMOVIRUS (PCR) NOT DETECTED (NOT DETECT); HUMAN RHINOVIRUS/ENTEROV (PCR) NOT DETECTED (NOT DETECT); INFLUENZA B (PCR) NOT DETECTED (NOT DETECT); MYCOPLASMA PNEUMONIAE (PCR) NOT DETECTED (NOT DETECT); PARAINFLUENZA VIRUS 1 (PCR) NOT DETECTED (NOT DETECT); PARAINFLUENZA VIRUS 2 (PCR) NOT DETECTED (NOT DETECT); PARAINFLUENZA VIRUS 3 (PCR) NOT DETECTED (NOT DETECT); PARAINFLUENZA VIRUS 4 (PCR) NOT DETECTED (NOT DETECT); RESPIRATORY SYNCYTIAL V (PCR) NOT DETECTED (NOT DETECT); SARS_COV_2 (PCR) NOT DETECTED (NOT DETECT)
[2021-01-19 18:15] LABS: ALANINE AMINOTRANSFERASE 18.4 U/L (0-35); ALBUMIN 4.11 g/dL (3.5-5.0); ALKALINE PHOSPHATASE 96.4 U/L (53-141); AMYLASE 55.2 U/L (30-110); ASPARTATE AMINO TRANSFERASE 21.5 U/L (14-36); BILIRUBIN,TOTAL 0.29 mg/dL (0.2-1.3); CALCIUM 9.33 mg/dL (8.4-10.2); CARBON DIOXIDE 22.6 mmol/L (22-30.0); CHLORIDE 109.4 mmol/L (98-107); CREATINE KINASE 45.4 U/L (30-135); CREATININE 0.99 mg/dL (0.60-1.30); GLUCOSE 125.9 mg/dL (74-106); LIPASE 93.1 U/L (23-300); MAGNESIUM 1.47 mg/dL (1.6-2.3); POTASSIUM 3.84 mmol/L (3.5-5.1); SODIUM 141.7 mmol/L (134.5-145)
[2021-01-19 18:20] LABS: BLOOD ALCOHOL < 10.0 mg/dL (0.0-50.0)
[2021-01-19] MEDS ORDERED: MAGNESIUM SULFATE 1 GM/2 ML VIAL IVP STA (18:23)
[2021-01-19 18:26] LABS: TROPONIN I < 0.012 ng/ml (0.0000-0.120)
--- NOTE | 2021-01-19 18:34 | DI ---
EXAM: Single view of the chest. History: Confusion. Comparison: Chest radiograph 11/13/2019 Findings: Heart is mildly enlarged. No consolidation. No pleural fluid and no pneumothorax. No ac [place] osseous abnormalities. Impression: Mild cardiomegaly without acute disease of the chest
[2021-01-19] MEDS ORDERED: MAGNESIUM SULFATE 1 GM/100 ML D5W 2 GM/200 ML BAG IV STA (18:37)
--- NOTE | 2021-01-19 18:37 | CT ---
EXAM: CT head without contrast. HISTORY: Altered mental status. PROCEDURE: Contiguous axial CT images of the head without contrast with coronal and sagittal reforma ts. FINDINGS: The ventricles and basal cisterns are normal in size and configuration. No evidence of ma ss or midline shift. No intracranial hemorrhage or evidence of large vessel infarct. No extra-axial fluid collection. There are minimal chronic small vessel ischemic changes in the white matter. The re is mucosal thickening in the paranasal sinuses. The mastoid air cells are normal in appearance. Impression: No intracranial hemorrhage or evidence of large vessel infarct. Chronic small vessel ischemic changes. Paranasal sinusitis. All CT scans are performed using dose optimization techniques as appropriate to the performed exam an d include at least one of the following: Automated exposure control, adjustment of the mA and/or kV according t o size, and the use of iterative reconstruction technique.
[2021-01-19 18:51] LABS: ADENOVIRUS (PCR) NOT DETECTED (NOT DETECT)
[2021-01-19 18:51] LABS: AMPHETAMINE SCREEN,URINE NEGATIVE (NEGATIVE); BARBITURATE SCREEN,URINE NEGATIVE (NEGATIVE); BENZODIAZEPINES SCREEN,URINE NEGATIVE (NEGATIVE); CANNABINOID SCREEN,URINE NEGATIVE (NEGATIVE); COCAIN SCREEN,URINE NEGATIVE (NEGATIVE); METHADONE URINE SCREEN NEGATIVE (NEGATIVE); METHAMPHETAMINES SCREEN,URINE NEGATIVE (NEGATIVE); OPIATE SCREEN,URINE NEGATIVE (NEGATIVE); OXYCODONE URINE SCREEN NEGATIVE (NEGATIVE); PHENCYCLIDINE SCREEN,URINE NEGATIVE (NEGATIVE); PROPOXYPHENE URINE SCREEN NEGATIVE (NEGATIVE); TRICYCLIC ANTIDEPRESSANTS URIN POSITIVE (NEGATIVE)
[2021-01-19 19:13] LABS: ACETAMINOPHEN < 10.0 ug/ml (10-30); SALICYLATE < 1.00 mg/dL (0-20.0)
--- NOTE | 2021-01-19 20:44 | PCM ---
Chief Complaint Chief Complaint: Overdose and suicidal ideations History of Present Illness History of Present Illness: Pt presented with intentional overdose on seroquel, ambien and Klonopin. Was depressed and wanting to hurt herself. Needs medical clearance for psychiatric evaluation. Review of Systems Constitutional: Reports Other (Depressed and lethargic) Eyes: Reports No symptoms Ears: Reports No symptoms Nose: Reports No symptoms Throat: Reports No symptoms Mouth: Reports No symptoms Respiratory: Reports No symptoms Cardiovascular: Reports No symptoms Gastrointestinal: Reports No symptoms Genitourinary: Reports No symptoms Neurological: Reports Other (Lethargic) Musculoskeletal: Reports No symptoms Skin: Reports No symptoms Immunology: Reports No symptoms Hematology: Reports No symptoms Endocrine: Reports No symptoms Psychiatric: Reports Depression and Suicidal Habits: Reports Tobacco use Allergies Allergies Allergy/AdvReac Type Severity Reaction Status Date / Time diphenhydramine AdvReac Verified 12/02/20 12:05 [From Benadryl] morphine AdvReac Verified 12/02/20 12:05 PFS Social History Smoking and tobacco status: Current every day smoker (1ppd down to 03/15) Medications Medications: Medications Generic Name Dose Route Start Last Admin Trade Name Freq PRN Reason Stop Dose Admin Sodium Chloride 1,000 mls @ 100 mls/hr 01/19/21 20:36 Sodium Chloride IV 01/20/21 06:35 .Q10H STA Body Composition Height: 5 ft 7 in Weight: 98.9 kg Body Mass Index (BMI): 34.1 Vital Signs Temperature: 97.3 F Pulse Rate: 73 Respiratory Rate: 18 Blood Pressure: 122/69 O2 Sat by Pulse Oximetry: 92 Physical Examination Appearance: Reports Well-appearing and Other (Lethargic) Ill-appearing: None Pain Distress: None Eyes: Reports MK and EOMI ENT: Reports Oropharynx normal Respiratory: Reports Airway patent, Breath sounds clear and Breath sounds equal Cardiovascular: Reports RRR, Pulses normal, No rub and No murmur GI/: Reports Soft, Nontender, No masses, Bowel sounds normal and No Organomega ly Musculoskeletal: Reports Normal strength, ROM intact, No edema and No calf tenderness Skin: Reports Warm, Dry and Normal color Neurological: Reports Sensation intact, Motor intact, Reflexes intact, Cranial nerves intact, Alert, Oriented and Other (Lethargic but responsive. Slurred speech but no facial droop) Psychiatric: Reports Depressed (With suicidal plans) Lab/Tests/Diagnostic Imaging Lab/Tests/Diagnostic Imaging: Lab Review 01/19/21 01/19/21 01/19/21 17:36 17:45 17:48 WBC 7.85 RBC 4.24 Hgb 13.7 Hct 41.0 MCV 96.7 MCH 32.3 H MCHC 33.4 RDW Coeff of Dorinda 12.3 Plt Count 214 Immature Gran % (Auto) 0.4 Neut % (Auto) 74.6 Lymph % (Auto) 18.3 [place] % (Auto) 5.4 Eos % (Auto) 1.0 Baso % (Auto) 0.3 Neut # (Auto) 5.9 Lymph # (Auto) 1.4 [place] # (Auto) 0.4 Eos # (Auto) 0.1 Baso # (Auto) 0.0 Immature Gran # (Auto) 0.0 Puncture Site Rr Base Excess -3.2 L O2 Saturation 92.5 L ABG pH 7.39 ABG pCO2 36.0 ABG pO2 66.0 L ABG HCO3 21.8 ABG Total CO2 22.9 Orion Test Pos Hemoglobin 0.9 Oxyhemoglobin 90.1 L Carboxyhemoglobin 6.3 H Total Hemoglobin 13.6 FiO2 % 21.0 Sodium Potassium Chloride Carbon Dioxide Anion Gap BUN Creatinine Estimated GFR (MDRD) BUN/Creatinine Ratio Glucose Lactic Acid Calcium Magnesium Total Bilirubin AST ALT Alkaline Phosphatase Total Creatine Kinase Troponin I Total Protein Albumin Globulin Albumin/Globulin Ratio Amylase Lipase Salicylate Level mg/dL Urine Opiates Screen Ur Oxycodone Screen Urine Methadone Screen Ur Propoxyphene Screen Acetaminophen Ur Barbiturates Screen U Tricyclic Antidepress Ur Phencyclidine Scrn Ur Amphetamine Screen U Methamphetamines Scrn U Benzodiazepines Scrn Urine Cocaine Screen U Cannabinoids Screen Plasma/Serum Alcohol Adenovirus (PCR) Not detected B. pertussis DNA (PCR) Not detected B.parapertussis DNA PCR Not detected C. pneumoniae DNA (PCR) Not detected Coronavirus OC43 (PCR) Not detected Coronavirus HKU1 (PCR) Not detected Coronavirus 229E (PCR) Not detected Coronavirus NL63 (PCR) Not detected Human Metapneumovir PCR Not detected Influenza Type A (PCR) Not detected Influenza B (RT-PCR) Not detected M. pneumoniae (PCR) Not detected Parainfluenza 1 (PCR) Not detected Parainfluenza 2 (PCR) Not detected Parainfluenza 3 (PCR) Not detected Parainfluenza 4 (PCR) Not detected RSV (PCR) Not detected Entero/Rhino (PCR) Not detected SARS-CoV-2 (PCR) Not detected 01/19/21 01/19/21 01/19/21 17:48 17:48 17:48 WBC RBC Hgb Hct MCV MCH MCHC RDW Coeff of Dorinda Plt Count Immature Gran % (Auto) Neut % (Auto) Lymph % (Auto) [place] % (Auto) Eos % (Auto) Baso % (Auto) Neut # (Auto) Lymph # (Auto) [place] # (Auto) Eos # (Auto) Baso # (Auto) Immature Gran # (Auto) Puncture Site Base Excess O2 Saturation ABG pH ABG pCO2 ABG pO2 ABG HCO3 ABG Total CO2 Orion Test Hemoglobin Oxyhemoglobin Carboxyhemoglobin Total Hemoglobin FiO2 % Sodium 141.7 Potassium 3.84 Chloride 109.4 H Carbon Dioxide 22.6 Anion Gap 13.54 BUN 23.0 H Creatinine 0.99 Estimated GFR (MDRD) 56.00 BUN/Creatinine Ratio 23.23 Glucose 125.9 H Lactic Acid 2.46 H Calcium 9.33 Magnesium 1.47 L Total Bilirubin 0.29 AST 21.5 ALT 18.4 Alkaline Phosphatase 96.4 Total Creatine Kinase 45.4 Troponin I < 0.012 Total Protein 7.10 Albumin 4.11 Globulin 2.99 Albumin/Globulin Ratio 1.37 Amylase 55.2 Lipase 93.1 Salicylate Level mg/dL < 1.00 Urine Opiates Screen Ur Oxycodone Screen Urine Methadone Screen Ur Propoxyphene Screen Acetaminophen < 10.0 L Ur Barbiturates Screen U Tricyclic Antidepress Ur Phencyclidine Scrn Ur Amphetamine Screen U Methamphetamines Scrn U Benzodiazepines Scrn Urine Cocaine Screen U Cannabinoids Screen Plasma/Serum Alcohol < 10.0 Adenovirus (PCR) B. pertussis DNA (PCR) B.parapertussis DNA PCR C. pneumoniae DNA (PCR) Coronavirus OC43 (PCR) Coronavirus HKU1 (PCR) Coronavirus 229E (PCR) Coronavirus NL63 (PCR) Human Metapneumovir PCR Influenza Type A (PCR) Influenza B (RT-PCR) M. pneumoniae (PCR) Parainfluenza 1 (PCR) Parainfluenza 2 (PCR) Parainfluenza 3 (PCR) Parainfluenza 4 (PCR) RSV (PCR) Entero/Rhino (PCR) SARS-CoV-2 (PCR) 01/19/21 18:25 WBC RBC Hgb Hct MCV MCH MCHC RDW Coeff of Dorinda Plt Count Immature Gran % (Auto) Neut % (Auto) Lymph % (Auto) [place] % (Auto) Eos % (Auto) Baso % (Auto) Neut # (Auto) Lymph # (Auto) [place] # (Auto) Eos # (Auto) Baso # (Auto) Immature Gran # (Auto) Puncture Site Base Excess O2 Saturation ABG pH ABG pCO2 ABG pO2 ABG HCO3 ABG Total CO2 Orion Test Hemoglobin Oxyhemoglobin Carboxyhemoglobin Total Hemoglobin FiO2 % Sodium Potassium Chloride Carbon Dioxide Anion Gap BUN Creatinine Estimated GFR (MDRD) BUN/Creatinine Ratio Glucose Lactic Acid Calcium Magnesium Total Bilirubin AST ALT Alkaline Phosphatase Total Creatine Kinase Troponin I Total Protein Albumin Globulin Albumin/Globulin Ratio Amylase Lipase Salicylate Level mg/dL Urine Opiates Screen Negative Ur Oxycodone Screen Negative Urine Methadone Screen Negative Ur Propoxyphene Screen Negative Acetaminophen Ur Barbiturates Screen Negative U Tricyclic Antidepress Positive H Ur Phencyclidine Scrn Negative Ur Amphetamine Screen Negative U Methamphetamines Scrn Negative U Benzodiazepines Scrn Negative Urine Cocaine Screen Negative U Cannabinoids Screen Negative Plasma/Serum Alcohol Adenovirus (PCR) B. pertussis DNA (PCR) B.parapertussis DNA PCR C. pneumoniae DNA (PCR) Coronavirus OC43 (PCR) Coronavirus HKU1 (PCR) Coronavirus 229E (PCR) Coronavirus NL63 (PCR) Human Metapneumovir PCR Influenza Type A (PCR) Influenza B (RT-PCR) M. pneumoniae (PCR) Parainfluenza 1 (PCR) Parainfluenza 2 (PCR) Parainfluenza 3 (PCR) Parainfluenza 4 (PCR) RSV (PCR) Entero/Rhino (PCR) SARS-CoV-2 (PCR) Orders Category Date Time Status PLACE PATIENT OBSERVATION .TO MEDSURG (MONITORED BED ADMISSION 01/19/21 20:36 Active ) ABG DRAW REQUEST Stat CARDIO 01/19/21 17:40 Completed EKG-(ED ONLY) Stat CARDIO 01/19/21 17:39 Completed OXYGEN Routine CARDIO 01/19/21 20:36 Ordered TELEMETRY MONITORING TELE CARE 01/19/21 20:36 Active TREATMENT ORDER:NURSING ONCE CARE 01/19/21 20:36 Active ED APPLY O2 .ONCE EMERGENCY 01/19/21 20:36 Active ABG COOX Stat LAB 01/19/21 17:36 Completed ACETAMINOPHEN Stat LAB 01/19/21 17:48 Completed AMYLASE Stat LAB 01/19/21 17:48 Completed BLOOD ALCOHOL Stat LAB 01/19/21 17:48 Completed BLOOD CULTURE (ED ONLY) Stat LAB 01/19/21 17:48 Received CBC W/ AUTO DIFF Stat LAB 01/19/21 17:48 Completed COMPREHENSIVE METABOLIC PANEL Stat LAB 01/19/21 17:48 Completed CREATINE KINASE Stat LAB 01/19/21 17:48 Completed DRUG SCREEN, URINE, RAPID Stat LAB 01/19/21 18:25 Completed LACTIC ACID Stat LAB 01/19/21 17:48 Completed LIPASE Stat LAB 01/19/21 17:48 Completed MAGNESIUM Stat LAB 01/19/21 17:48 Completed RESPIRATORY PANEL 2.1 (PCR) Stat LAB 01/19/21 17:45 Completed SALICYLATE Stat LAB 01/19/21 17:48 Completed TROPONIN I Stat LAB 01/19/21 17:48 Completed URINALYSIS C & S IF INDICATED Stat LAB 01/19/21 18:30 Ordered Magnesium Sulfate Bag [Magnesium Sulfate 1 gm/100 ml MEDS 01/19/21 18:37 Discontinued D5w] 2 gm in 200 ml IV ONCE Sodium Chloride 0.9% [Sodium Chloride] 1,000 ml MEDS 01/19/21 20:36 Active IV 100 mls/hr Sodium Chloride 0.9% [Sodium Chloride] 1,000 ml MEDS 01/19/21 17:39 Discontinued IV BOLUS Sodium Chloride 0.9% [Sodium Chloride] 1,000 ml MEDS 01/19/21 18:46 Discontinued IV BOLUS CHEST, 1V AP ONLY Stat RADS 01/19/21 17:[address] HEAD W/O CONTRAST Stat RADS 01/19/21 17:39 Completed Medications Generic Name Dose Route Start Last Admin Trade Name Freq PRN Reason Stop Dose Admin Sodium Chloride 1,000 mls @ 100 mls/hr 01/19/21 20:36 Sodium Chloride IV 01/20/21 06:35 .Q10H STA Discontinued Medications Generic Name Dose Route Start Last Admin Trade Name Freq PRN Reason Stop Dose Admin Sodium Chloride 1,000 mls @ 1,000 mls/hr 01/19/21 17:39 01/19/21 17:57 Sodium Chloride IV 01/19/21 18:38 1,000 mls/hr BOLUS STA Administration Magnesium Sulfate/Dextrose 2 gm in 200 mls @ 100 mls/hr 01/19/21 18:37 01/19/21 18:49 Magnesium Sulfate 1 Gm/100 Ml D5w IV 01/19/21 20:36 100 mls/hr ONCE STA Administration Sodium Chloride 1,000 mls @ 1,000 mls/hr 01/19/21 18:46 01/19/21 18:49 Sodium Chloride IV 01/19/21 19:45 1,000 mls/hr BOLUS STA Administration Assessment (1) Depression with suicidal ideation: Status: Acute Code(s): F32.A - Depression, unspecified; R45.851 - Suicidal ideations SNOMED Code(s): 22512754 (2) Drug overdose: Status: Acute Code(s): T50.901A - Poisoning by unspecified drugs, medicaments and biological substances, accidental (unintentional), initial encounter SNOMED Code(s): 4678858888 Plan Plan: 1. Overdose: Monitor until medications are no longer in system and patient is cleared medically. 2. Depression and SI: After medically cleared, have a psychiatric evaluation performed.
[2021-01-19 21:49] VITALS: BMI 34.5
[2021-01-19 22:09] LABS: BILIRUBIN,URINE Negative (NEGATIVE); CLARITY,URINE Clear (CLEAR); COLOR,URINE Yellow (YELLOW); GLUCOSE, URINE (UA) Negative (NEGATIVE); KETONES,URINE Negative (NEGATIVE); LEUKOCYTE ESTERASE ,URINE Trace (NEGATIVE); NITRITE,URINE Positive (NEGATIVE); PROTEIN,URINE Negative (NEGATIVE); URINE, BLOOD Trace-intact (NEGATIVE); UROBILINOGEN,URINE 0.2 (0.2)
[2021-01-19 22:15] LABS: BACTERIA,URINE 4+ (NOT PRESENT); SQUAMOUS EPITHELIAL CELL,UR 0-2 (0-5)
--- NOTE | 2021-01-20 09:57 | PCM.PROG ---
care assumed from Dr Ortega at 7am pt improving after suicide attempt with seroquel, klonopin and ambien, vss, alert and oriented x3, nad, ordered [facility] evaluation heent: conjunctiva clear, buccal moist lungs: clear heart: RRR abdomen: soft and nontender extremities: warm and dry psych: speech fluent, good eye contact, cooperative care to Dr Ornelas at 7pm
[2021-01-20] MEDS ORDERED: VENTOLIN HFA (PER PUFF-WITH SPACER) IH PRN (12:16)
[2021-01-20] MEDS ORDERED: COZAAR PO SCH (12:30)
--- NOTE | 2021-01-20 12:43 | PCM.PROG ---
Because no family member has been able to be contacted, pt cannot be discharge at this time, and case management is working to obtain placement.
[2021-01-20] MEDS: ADVAIR 250-50 DISKUS IH SCH ×2 (14:09→20:20)
--- NOTE | 2021-01-20 15:57 | PCM.PROG ---
d/w [facility] rep that the pt is not a candidate for discharge because her daughter is the only identified family member, and the daughter is one of the patients stressors. The pt will need mental health placement.
[2021-01-20 18:22] VITALS: TEMP 99.2
[2021-01-20 20:20] LABS: BASOPHILS % (AUTO) 0.4 % (0.0-3.0); EOSINOPHILS # (AUTO) 0.1 K/ul (0.0-0.7); EOSINOPHILS % (AUTO) 1.6 % (0.0-7.0); HEMATOCRIT 39.6 % (37.0-47.0); HEMOGLOBIN 13.5 g/dl (12.0-16.0); IMMATURE GRANULOCYTE % (AUTO) 0.3 % (0.0-5.0); LYMPHOCYTES # (AUTO) 2.6 K/uL (0.60-3.4); MEAN CORPUSCULAR HEMOGLOBIN 33.1 pg (27.0-31.0); MEAN CORPUSCULAR HGB CONC 34.1 (31.8-35.4); MEAN CORPUSCULAR VOLUME 97.1 fl (81.0-99.0); MONOCYTES # (AUTO) 0.6 K/uL (0.4-2.0); MONOCYTES % (AUTO) 6.9 (0-10); NEUTROPHILS # (AUTO) 4.6 K/ul (2.0-6.9); NEUTROPHILS % (AUTO) 57.8 % (42.2-75.2); PLATELET COUNT 208 10^3/uL (140-440); RDW COEFFICIENT OF VARIATION 12.5 % (11.6-14.8); RED BLOOD COUNT 4.08 10^6/ul (4.20-5.40); WHITE BLOOD COUNT 7.96 K/ul (4.6-10.2)
[2021-01-20 20:32] LABS: ALANINE AMINOTRANSFERASE 22.3 U/L (0-35); ALBUMIN 4.14 g/dL (3.5-5.0); ALKALINE PHOSPHATASE 94.1 U/L (53-141); ASPARTATE AMINO TRANSFERASE 38.6 U/L (14-36); BILIRUBIN,TOTAL 0.26 mg/dL (0.2-1.3); BLOOD UREA NITROGEN 19.8 mg/dL (7-17); CALCIUM 9.54 mg/dL (8.4-10.2); CHLORIDE 108.3 mmol/L (98-107); CREATININE 1.14 mg/dL (0.60-1.30); GLUCOSE 111.4 mg/dL (74-106); POTASSIUM 4.19 mmol/L (3.5-5.1); TOTAL PROTEIN 7.31 g/dL (6.3-8.2)
[2021-01-20 21:09] VITALS: BP 121/74
[2021-01-20 21:27] LABS: MAGNESIUM 1.71 mg/dL (1.6-2.3)
[2021-01-20 21:28] LABS: ACETAMINOPHEN < 10.0 ug/ml (10-30); SALICYLATE < 1.00 mg/dL (0-20.0)
--- NOTE | 2021-01-21 01:43 | PCM.PROG ---
Date Seen by Provider: 01/20/21 Time Seen by Provider: 23:45 Subjective: Suicidal ideation, awaiting Psych inpatient transfer. Objective: Vitals: T=99.2 F, P=73, R=18, VM=999/74, SPO2=95 HEENT: []wnl Neck: []supple Lungs: []chest was clear CVS: []rrr Abdomen: []benign Extremities: []no acute abnormality. Neurological: [] non-focal Skin: []normal exam Lab/Tests/Diagnostic Imaging: [] (1) Depression with suicidal ideation: Status: Acute Code(s): F32.A - Depression, unspecified; R45.851 - Suicidal ideations SNOMED Code(s): 55650873 (2) Drug overdose: Status: Acute Code(s): T50.901A - Poisoning by unspecified drugs, medicaments and biological substances, accidental (unintentional), initial encounter SNOMED Code(s): 5703238944 Plan: For transfer to Psych inpatient: see orders.
[2021-01-21] MEDS ORDERED: SYNTHROID PO SCH (06:30)
== END 2021-01-21 01:20 ==
LOC: ED 17:30 → INTOOBSV 20:40 → MEDSURG A 20:40
PROVIDERS: ADMIT Emergency Medicine; ATTEND Emergency Medicine Emergency Medical Services
DX: Z20.822 Contact with and (suspected) exposure to COVID-19; T50.901A Poisoning by unspecified drugs, medicaments and biological substances, accidental (unintentional), initial encounter; R45.851 Suicidal ideations; Z02.2 Encounter for examination for admission to residential institution; Z79.899 Other long term (current) drug therapy; R53.83 Other fatigue; F32.A Depression, unspecified